=== PATIENT | male | born 1970 | race Caucasian/White ===

== ENCOUNTER 2020-08-10 13:21 | Outpatient (REF) | payer MEDICAID, SELFPAY ==
[2020-08-10 19:22] LABS: COMMENT (LAB VIEW ONLY) 55.63 mg/dL; Microalb ug/mg Crea 15.8 ug/mg Cr
[2020-08-10 19:30] LABS: AST 12 U/L (15-37); Albumin 4.2 g/dL (3.4-5.0); Anion Gap 14.8 mmol/L (3-11); BUN 21 mg/dL (7-18); CO2 21.2 mmol/L (21.0-32.0); CREATININE 0.94 mg/dL (0.70-1.30); Calcium 9.2 mg/dL (8.5-10.1); Chloride 97 mmol/L (98-107); Glucose 388 mg/dL (74-106); Potassium 4.6 mmol/L (3.5-5.1); Sodium 133 mmol/L (136-145)
[2020-08-10 19:45] LABS: ALT 32 U/L (16-63); Alkaline Phosphatase 151 U/L (46-116); Bilirubin, Total 0.7 mg/dL (0.2-1.0); Total Protein 7.7 g/dL (6.4-8.2)
[2020-08-10 20:00] LABS: Hemoglobin A1C 12.4 % (<5.7)
[2020-08-10 20:16] LABS: Cholesterol 300 mg/dL (<200); HDL Cholesterol 38 mg/dL (40-60); Triglyceride 826 mg/dL (<150)
[2020-08-10 20:30] LABS: LDL CHOLESTEROL 109 mg/dL (<100)
[2020-08-13 12:58] LABS: Hepatitis C Ab w Rflx HCV PCR Negative (Negative)
== END 2020-08-10 13:41 ==
LOC: NCHCN 13:21
PROVIDERS: Visit Provider Physician Assistant
DX: E11.9 Type 2 diabetes mellitus without complications (principal); E78.5 Hyperlipidemia, unspecified; Z11.59 Encounter for screening for other viral diseases
CPT/HCPCS: 80053; 80061; 83721; 86803; 82043; 82570; 83036

== ENCOUNTER 2020-09-07 10:45 | Outpatient (REF) | payer MEDICAID, SELFPAY ==
[2020-09-12 13:10] LABS: Testosterone, Free 9.38 ng/dL (4.26-16.4); Testosterone, Total 391 ng/dL (240-950)
== END 2020-09-07 11:05 ==
LOC: NCHCN 10:45
PROVIDERS: PCP Physician Assistant; Visit Provider Physician Assistant
DX: N52.9 Male erectile dysfunction, unspecified (principal)
CPT/HCPCS: 84402; 84403

== ENCOUNTER 2021-01-16 09:03 | Outpatient (REF) | payer MEDICAID, SELFPAY ==
[2021-01-16 16:09] LABS: ALT 39 U/L (16-63); AST 15 U/L (15-37); Albumin 3.9 g/dL (3.4-5.0); Alkaline Phosphatase 112 U/L (46-116); BUN 15 mg/dL (7-18); Bilirubin, Total 0.5 mg/dL (0.2-1.0); CREATININE 0.7 mg/dL (0.70-1.30); Calcium 8.9 mg/dL (8.5-10.1); Calculated LDL 89 mg/dL (<100); Chloride 106 mmol/L (98-107); Cholesterol 162 mg/dL (<200); Glucose 169 mg/dL (74-106); HDL Cholesterol 47 mg/dL (40-60); Potassium 4.2 mmol/L (3.5-5.1); Sodium 142 mmol/L (136-145); Total Protein 7.3 g/dL (6.4-8.2); Triglyceride 131 mg/dL (<150)
[2021-01-16 16:13] LABS: Hemoglobin A1C 9.2 % (<5.7)
== END 2021-01-16 09:04 | disposition home or self-care (01) ==
LOC: NCHCN 09:03
PROVIDERS: PCP Physician Assistant; Visit Provider Physician Assistant
DX: E11.9 Type 2 diabetes mellitus without complications (principal)
CPT/HCPCS: 80053; 80061; 83036

== ENCOUNTER 2021-03-25 22:26 | Emergency (ER) | payer MEDICAID, SELFPAY ==
[2021-03-25 22:27] VITALS: BP 127/82; PULSE 100; RESP 16; TEMP 36.7; O2SAT 99
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
== END 2021-03-26 | disposition home or self-care (01) ==
PROVIDERS: Emergency Provider Physician Assistant; PCP Physician Assistant
DX: S06.0X9A Concussion with loss of consciousness of unspecified duration, initial encounter (principal); Y04.2XXA Assault by strike against or bumped into by another person, initial encounter
CPT/HCPCS: 99284; 70450; 70486; 99283

== ENCOUNTER 2021-09-24 22:23 | Emergency (ER) | payer MEDICAID, SELFPAY ==
[2021-09-24] VITALS (16 sets, daily range): BP systolic 121–131; BP diastolic 75–80; PULSE 104–110; RESP 13–28; TEMP 36.8; O2SAT 94–96
--- NOTE | 2021-09-24 22:30 | RT.EKG_ITS ---
APPROVED REPORT Exam: Resting ECG Reason for Exam: short of breath Patient Location: E HR:108 bpm ECG Measurements Heart Rate 108 AXIS IN 160 P 46 QRSd 105 QRS -9 QT 330 T 42 QTc 443 Conclusion Sinus tachycardia...rate> 99 Physician: no stemi
--- NOTE | 2021-09-24 22:30 | DI.RAD_ITS ---
Exam(s) XR PORTABLE CHEST AP EXAM: XR PORTABLE CHEST AP CLINICAL HISTORY: suspect covid. TECHNIQUE: 2D digital imaging was performed. COMPARISON: No exams were available for comparison FINDINGS: Heart size is upper normal. The mediastinum is not widened. No confluent infiltrates nor pleural effusions. There is scarring or subsegmental platelike atelecta sis in the lateral left lung base. No pneumothorax. IMPRESSION: There is subsegmental platelike atelectasis or scarring in the lateral left lung base. No pleural ef fusions evident on this single portable view. DATA REPOSITORY: RADIATION DOSE DELIVERED: All CT scans at this facility use at least one of these dose optimization techniques: automated exposure control; mA and/or kV adjustment per patient size (includes targeted e xams where dose is matched to clinical indication); or iterative reconstruction.
[2021-09-24 22:54] LABS: BE (Venous) -4 mmol/L (-2-3); HCO3 (Venous) 20 mmol/L (23-28); O2 Sat (Venous) 85 %; TCO2 (Venous) 18 mmol/L (24-29); pCO2 (Venous) 32 mmHg (41-51); pH (Venous) 7.42 (7.31-7.41); pO2 (Venous) 46 mmHg
[2021-09-24 22:55] LABS: Abs Immature Grans 0.04 10^3/uL (0.0-0.06); Absolute Basophil Count 0.03 10^3/uL (0.0-0.2); Absolute Lymphocyte Count 1.48 10^3/uL (1.2-3.4); Absolute Monocyte Count 0.48 10^3/uL (0.1-0.8); Absolute Neutrophil Count 4.44 10^3/uL (1.2-6.7); Basophils % 0.5; HCT 45.7 % (40.0-50.0); HGB 15.6 g/dL (13.5-17.5); Immature Grans % 0.6; Lymphocytes % 22.9; MCH 30.2 pg (27.0-33.0); MCHC 34.1 % (32.0-36.0); MCV 88.4 fL (80-95); MPV 8.1 fL (8.0-11.0); Monocytes % 7.4; Neutrophils % 68.6; Nucleated RBC 0 %; Platelet Count 166 10^3/uL (130-400); RBC 5.17 10^6/uL (4.36-5.78); RDW 12.1 % (11.8-14.1); RDW-SD 39.8 fL; WBC 6.47 10^3/uL (4.4-10.8)
--- NOTE | 2021-09-24 22:55 | ED.GENADUL_ITS ---
Discharge Plan Disposition Patient Disposition: HOME Condition: Good Discharge Details Clinical Impression: Suspected 2019-nCoV infection, Dehydration Primary Care Provider: Omar Bloom ED Provider: Todd Golden Home Meds and New Rx's Prescriptions: Continued Jardiance 25 mg Tablet 25 mg PO DAILY RF: 0 glipizide 5 mg Tablet 5 mg PO BID RF: 0 Discharge Instructions Instructions: Dehydration (ED), COVID-19 (Coronavirus Disease 2019) (ED) Additional Instructions: At this time your COVID-19 infection is likely mild and you did not require hospitalization. You have received the monoclonal antibody therapy. Please continue to stay well-hydrated at home, rest, and monitor your symptoms closely. If you develop cough, shortness of breath, or difficulty breathing please return for reassessment. You have been given a pulse oximeter, monitor your oxygen levels closely. If your oxygen gets below 90% for an extended period of time please contact your medical provider or return for reassessment. If you notice any worsening of your symptoms, or any new symptoms such as vomiting, diarrhea, fever, chills, shortness of breath, chest pain, numbness, weakness, or fainting , please return immediately to the emergency department for reevaluation. Please follow up with your primary care provider as soon as possible for reassessment and reevaluation. As always, it was a pleasure participating in your medical care today. Referrals: Omar Bloom [Primary Care Provider] - Medical Decision Making 51-year-old male with past medical history of type 2 diabetes presents today for Covid-like symptoms. Patient states that 7 days ago he had onset of symptoms of diarrhea, fatigue, diminished appetite, chills, and weakness. He denies any chest pain, cough, or shortness of breath. He has loss of taste and smell. His is Covid positive. He has not received a Covid vaccine. He denies any syncope or cardiac problems. No other complaints at this time. No other modifying factors. Physical demonstrate a dehydrated appearing male, mildly tachycardic, clear lung sounds, oxygenation is good. No abdominal or calf tenderness. The patient's last of taste and smell, his Covid positive , and his symptoms of a viral illness his symptoms appear clinically consistent with COVID-19. The patient is currently at day 7/8 of symptoms. We are currently restricted from ordering rapid Covid test here in the ED secondary to her lack of supplies, and so we will perform a send out test. Regardless his symptoms are clinically consistent with COVID-19 and has been up to 48 to 72 hours until results return. This would put him out of the window for monoclonal antibody therapy at that time. Based on his clinical symptomatology, his high risk status based on his age, diabetes, and current clinical disposition I do feel that monoclonal antibody therapy is indicated. As the patient had not received his Covid vaccine, I did have a long discussion with the patient to see if you would be willing to receive the monoclonal antibody infusion. After discussion he made it unequivocally clear that he does want the infusion. This will be administered here. We will get a screening chest x-ray, rehydrate, monitor closely and reassess. Differential is highest for mild dehydration secondary to COVID-19. 1:02 AM Laboratory work-up has returned, no white count bandemia or left shift. No lymphopenia. VBG demonstrates mild alkalosis suggestive of the patient diarrhea, sodium slightly low at 126, he has been given 2 L of normal saline. Anion gap minimally high at 12.5. Troponin normal, EKG unremarkable. Patient does not have any bowel movements here. Symptoms consistent with COVID-19 clinically. Chest x-ray shows questionable subsegmental atelectasis versus very early atypical infection. Patient denies any cough, so clinically symptoms are more consistent with mild atelectasis. With no clinical evidence of significant pneumonia I see no indication for antibiotics at this time. Oxygenation is excellent. We will get pulse oximeter for home use. Patient tolerated the monoclonal antibody infusion well. Recommend continued hydration at home, rest, and close follow-up. Discussed red flags which to return. Discussed the case with the patient's as well. I have extensively reviewed the treatment plan and discharge instructions with the patient and their family. I have addressed all patient concerns at this time. The patient and family was made aware of what symptoms to monitor for that would warrant a return to the emergency department. Discussed the plan with the patient and family, they demonstrate verbal understanding and agreement with our assessment and plan at this time. The documentation in this chart was dictated using Node[employer] dictation software. Please excuse any dictation errors. FINDINGS: Lungs: Minor patchy interstitial and linear opacities are possible in the left lung base. Pleural spaces: No pleural effusion. No pneumothorax. Heart/Mediastinum: No cardiomegaly. Bones/joints: No acute fracture. IMPRESSION: Difficult to differentiate subsegmental atelectasis from a potential early atypical infection in the left lung base; follow-up is recommended. Thank you for allowing us to participate in the care of your patient. Dictated and Authenticated by: Adelita Crook MD 09/24/2021 11:27 PM Eastern Time ([place] & [place]) HPI General Date/Time Provider Initiated Documentation: 09/24/21 22:26 . HPI Narrative: 51-year-old male with past medical history of type 2 diabetes presents today for Covid-like symptoms. Patient states that 7 days ago he had onset of symptoms of diarrhea, fatigue, diminished appetite, chills, and weakness. He denies any chest pain, cough, or shortness of breath. He has loss of taste and smell. His is Covid positive. He has not received a Covid vaccine. He denies any syncope or cardiac problems. No other complaints at this time. No other modifying factors. Related Data Home Medications Medication Instructions Recorded Confirmed Jardiance 25 mg PO DAILY 03/25/21 09/24/21 glipizide 5 mg PO BID 03/25/21 09/24/21 Allergies Allergy/AdvReac Type Severity Reaction Status Date / Time No Known Allergies Allergy Unverified 03/25/21 22:39 General Stated Complaint: GenMedical DANNY: 3 Review of Systems All systems reviewed & are unremarkable except as noted in HPI and below [facility] Active Problem List Concussion (Acute) Social History Smoking/Tobacco Use Status: Never Smoking risk assessment performed?: Yes Alcohol Intake: current Alcohol Intake frequency: a few times a week Alcohol type: beer and hard liquor Drug use: Rarely Substance use type: marijuana Do you feel safe at home: Yes Exam Narrative Exam Narrative: 1.Const: Well-nourished, Well-developed, appearing stated age 2.Eyes: PERRL, no conjunctival injection, and symmetrical lids. 3.ENT: Atraumatic external nose and ears. Notably dry MM. Neck: Symmetric, trachea midline, No thyromegaly. 4.CVS: +S1/S2, No murmurs or gallops. Peripheral pulses 2+ and equal in all extremities. Brisk capillary refill in all extremities. 5.RESP: Unlabored respiratory effort. Clear to auscultation bilaterally. No wheezes rales or rhonchi 6.GI: Soft, Nontender/Nondistended, No hepatosplenomegaly. No guarding or rebound. 7.MSK: Normocephalic/Atraumatic, Extremities w/o deformity or ttp No cyanosis or clubbing, Normal movement of all extremities 8.Skin: Warm, Dry. No rashes or lesions. 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 Sensation grossly intact, no focal neurolo gic deficits. 10.Psych: (AAO) x3. Appropriate mood and affect Course Vital Signs Vital signs: Vital Signs Temperature 36.8 C 09/24/21 22:32 Pulse 110 H 09/24/21 22:32 Respiratory Rate 18 09/24/21 22:32 Blood Pressure 121/80 09/24/21 22:32 Pulse Oximetry 95 09/24/21 22:32 Temperature 36.8 C 09/24/21 22:32 Temperature Source Tympanic 09/24/21 22:32 Pulse 110 H 09/24/21 22:32 Respiratory Rate 18 09/24/21 22:32 Respiratory Effort 09/24/21 22:49 Respiratory Depth Normal 09/24/21 22:49 Respiratory Pattern Normal 09/24/21 22:49 Blood Pressure 121/80 09/24/21 22:32 Blood Pressure Position Supine 09/24/21 22:32 Pulse Oximetry 95 09/24/21 22:32 Oxygen Delivery Method Room Air 09/24/21 22:32 Oxygen Flow Rate 0 09/24/21 22:32 Pain Level 4 09/24/21 22:32
[2021-09-24] MEDS: Normal Saline 1,000 ML 1000 ML IV (23:06)
[2021-09-24 23:13] LABS: ALT 31 U/L (16-63); AST 26 U/L (15-37); Albumin 3.2 g/dL (3.4-5.0); Alkaline Phosphatase 70 U/L (46-116); Anion Gap 12.5 mmol/L (3-11); BUN 18 mg/dL (7-18); Bilirubin, Total 0.6 mg/dL (0.2-1.0); CO2 20.5 mmol/L (21.0-32.0); Calcium 8.1 mg/dL (8.5-10.1); Chloride 93 mmol/L (98-107); Glucose 172 mg/dL (74-106); Potassium 3.9 mmol/L (3.5-5.1); Sodium 126 mmol/L (136-145); Total Protein 7.2 g/dL (6.4-8.2)
[2021-09-24 23:14] LABS: Troponin I < 0.05 ng/mL (<0.06)
--- NOTE | 2021-09-24 23:27 | DI.VRAD_ITS ---
PROCEDURE INFORMATION: Exam: XR Chest Exam date and time: 09/24/2021 22:41 Age: 51 years old Clinical indication: Other: Suspect covid TECHNIQUE: Imaging protocol: XR of the chest. Views: 1 view. COMPARISON: No relevant prior studies available. FINDINGS: Lungs: Minor patchy interstitial and linear opacities are possible in the left lung base. Pleural spaces: No pleural effusion. No pneumothorax. Heart/Mediastinum: No cardiomegaly. Bones/joints: No acute fracture. IMPRESSION: Difficult to differentiate subsegmental atelectasis from a potential early atypical infection in the left lung base; follow-up is recommended. Dictated and Authenticated by: Adelita Crook MD. Ordering:TERRANCE Brooks MD
[2021-09-25] VITALS (7 sets, daily range): BP systolic 117–129; BP diastolic 71–75; PULSE 101–104; RESP 16–22; O2SAT 96–98
--- NOTE | 2021-09-25 00:08 | SUR.PHASEI ---
monoclonial antibody infusion completed without difficulty
[2021-09-25] MEDS: Normal Saline 1,000 ML 1000 ML IV (00:09)
[2021-09-26 16:25] LABS: COVID-19 RT-PCR UVMMC Result Positive (Negative)
--- NOTE | 2021-09-26 20:16 | W.ED.FU ---
Message left for patient with his as his listed number is not working. Patient returned the call to the ED and was informed of his positive COVID-19 test result. He states he is feeling better. Advised to follow-up with his PCP or the Department of Health for any further recommendations. Advised to return to the ED if his symptoms worsen.
== END 2021-09-25 02:04 | disposition home or self-care (01) ==
PROVIDERS: Emergency Provider Student in an Organized Health Care Education/Training Program; PCP Physician Assistant
DX: U07.1 COVID-19 (principal); E86.0 Dehydration; R19.7 Diarrhea, unspecified; R53.83 Other fatigue; R43.0 Anosmia; Z20.822 Contact with and (suspected) exposure to COVID-19
CPT/HCPCS: 36415; 80053; 82805; 93005; 96360; 96361; 96365; 99285; U0003; 71045; 84484; 85025; 93010

== ENCOUNTER 2021-10-03 12:17 | Inpatient (IN) | payer MEDICAID, SELFPAY ==
[2021-10-03] VITALS (30 sets, daily range): BP systolic 113–124; BP diastolic 74–85; PULSE 89–136; RESP 16–23; TEMP 36.1–36.6; O2SAT 94–98
--- OUTSIDE RECORDS SUMMARY | 2021-10-03 12:26 | XMS_ITS ---
:1970 Author Care Team Providers Name Role Phone JANNETH CORDERO Primary Care Provider [phone] Allergies Code Code System Name Reaction Severity Status Onset NKDA ? Medications Name Status Start Date Stop Date ? ? atorvastatin 10 mg tablet Active ? Not av ailable Take 1 tablet every day by oral route. Cialis 20 mg tablet Active ? Not availabl e Take 1 tablet every day by oral route. Jardiance 10 mg tablet Active ? Not avail able Take 1 tablet every day by oral route. Lantus Solostar U-100 Insulin Active ? No t available Levemir U-100 Insulin Active ? Not availa ble Lyrica 75 mg capsule Active ? Not availab le Take 1 capsule twice a day by oral route. NovoFine Plus 32 gauge x 1/6 needle Active ? Not available Novolog Flexpen U-100 Insulin aspart 100 unit/mL (3 mL) subcutan eous Active ? Not available Inject by subcutaneous route. Problems Name Status Onset Date Source ? Type 2 Diabetes Mellitus Active 09/12/2020 ? Dyslipidemia Active 09/12/2020 ? 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 Primary Erectile Dysfunction Active 09/12/2020 ? Hepatitis C Screening Active 09/12/2020 ? Restless Legs Active 09/13/2020 ? Obstructive Sleep Apnea Syndrome Active ? ? Procedures None recorded. Results Lab Results None recorded. 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 Social History Tobacco Smoking Status Never Smoker Vaccine List None recorded. Plan of Care Reminders Provider Appointments None ? ? recorded. Lab None ? ? recorded. Referral None ? ? recorded. Procedures None ? ? recorded. Surgeries None ? ? recorded. Imaging None ? ? recorded. Vitals Height Weight BMI Blood Pressure 170.18 cm 91.58 kg 31.6 kg/m2 110/80 mm[Hg]
--- NOTE | 2021-10-03 12:30 | RT.EKG_ITS ---
APPROVED REPORT Exam: Resting ECG Reason for Exam: covid+ Patient Location: E HR:112 bpm ECG Measurements Heart Rate 112 AXIS HI 163 P 41 QRSd 102 QRS 1 QT 340 T 45 QTc 464 Conclusion Sinus tachycardia...rate> 99
--- NOTE | 2021-10-03 12:30 | DI.CT_ITS ---
Exam(s) CT CHEST PE CTA EXAM: CT CHEST PE CTA CLINICAL HISTORY: tachycardia, calf pain, covid +. TECHNIQUE: Imaging Protocol: CT angiography of the chest was performed using pulmonary embolus eben col. Multi planar reconstructions were performed. CONTRAST MATERIAL: Intravenous: Omnipaque 350 Contrast volume: 100 cc COMPARISON: No exams were available for comparison FINDINGS: CHEST: PULMONARY ARTERIES: There are extensive bilateral intraluminal filling defect starting just beyond divina th main pulmonary arteries and the involving all lobes both lungs. LUNGS: There is patchy bilateral infiltrate more consistent with Covid-type pneumonia than obvious pu lmonary infarct.. There are no pleural effusions. MEDIASTINUM: There is some subcarinal adenopathy. Small hilar lymph nodes. No adenopathy in the ant erior mediastinal fat. No axillary adenopathy. No supraclavicular adenopathy visualized thyroid unr emarkable. CARDIAC: Heart size is upper normal. There is no pericardial effusion.Caliber of the thoracic aorta is within normal limits. No dissection. There is no significant shift of the interventricular septum . PARTIALLY VISUALIZED UPPERMOST ABDOMEN: No obvious findings OSSEOUS: No significant osseous lesions.. IMPRESSION: 1. Extensive bilateral pulmonary emboli.This patient has extensive clot load in the left lower extrem ity, as evident on ultrasound Doppler exam earlier today. 2. No evidence of pulmonary infarction but there are bilateral infiltrates consistent with Covid 19 p neumonia (known history). No pleural effusions. 3. No obvious prominent right heart strain findings. 4. Thoracic aorta intact. No significant dilatation and no evidence of dissection. Report called by myself to the ER provider. RADIATION DOSE DELIVERED: 457.02mGy.cm Total DLP DATA REPOSITORY: All CT scans at this facility are submitted to the National Radiology Data Registry (NRDR) Dose Index Registry (DIR) with the [employer] (ACR). RADIATION OPTIMIZATION: All CT scans at this facility use at least one of these dose optimization te chniques: automated exposure control; mA and/or kV adjustment per patient size (includes targeted exa ms where dose is matched to clinical indication); or iterative reconstruction.
--- NOTE | 2021-10-03 12:39 | DI.US_ITS ---
Exam(s) US LOWER EXTREMITY VENOUS LT EXAM: US LOWER EXTREMITY VENOUS LT CLINICAL HISTORY: recent covid, leg pain and swelling TECHNIQUE: Grayscale, color, and doppler imaging of the deep venous system of the lower extremity w as performed. COMPARISON: CT CT CHEST PE CTA from 10/03/[address] CHEST PE CTA from 10/03/2021 FINDINGS: This is a positive-abnormal study. There is extensive DVT in the left lower extremity starting just below the common femoral vein and ex tending down continuously through the popliteal vein into the calf veins. Also involving peroneal ve ins. There is also thrombosis of some of the superficial veins below the knee. The common femoral vein is patent as is the ipsilateral greater saphenous vein. Profundal femoral ve in is patent. IMPRESSION: 1. Extensive left lower extremity DVT, starting in the upper thigh-proximal femoral vein level and e xtending down to involve the calf veins. 2. Ipsilateral common femoral vein is patent. Also no thrombus in the ipsilateral greater saphenous vein nor within the profundal femoris vein DATA REPOSITORY:
[2021-10-03 13:11] LABS: Abs Immature Grans 0.48 10^3/uL (0.0-0.06); Absolute Basophil Count 0.11 10^3/uL (0.0-0.2); Absolute Eosinophil Count 0.36 10^3/uL (0.0-0.7); Absolute Lymphocyte Count 1.85 10^3/uL (1.2-3.4); Absolute Monocyte Count 0.99 10^3/uL (0.1-0.8); Absolute Neutrophil Count 6.55 10^3/uL (1.2-6.7); Basophils % 1.1; Eosinophils % 3.5; HCT 44.3 % (40.0-50.0); HGB 15.1 g/dL (13.5-17.5); Immature Grans % 4.6; Lymphocytes % 17.9; MCH 30.8 pg (27.0-33.0); MCHC 34.1 % (32.0-36.0); MCV 90.2 fL (80-95); MPV 7.9 fL (8.0-11.0); Monocytes % 9.6; Neutrophils % 63.3; Nucleated RBC 0 %; Platelet Count 297 10^3/uL (130-400); RBC 4.91 10^6/uL (4.36-5.78); RDW 12.7 % (11.8-14.1); RDW-SD 41.8 fL; WBC 10.34 10^3/uL (4.4-10.8)
[2021-10-03] MEDS: Omnipaque 350 MG/ML 100 ML BTL IJ (13:25)
[2021-10-03 13:28] LABS: ALT 25 U/L (16-63); AST 15 U/L (15-37); Albumin 3.4 g/dL (3.4-5.0); Alkaline Phosphatase 79 U/L (46-116); Anion Gap 12.8 mmol/L (3-11); BUN 15 mg/dL (7-18); Bilirubin, Total 0.6 mg/dL (0.2-1.0); CO2 23.2 mmol/L (21.0-32.0); CREATININE 0.6 mg/dL (0.70-1.30); Chloride 104 mmol/L (98-107); Glucose 223 mg/dL (74-106); Potassium 3.9 mmol/L (3.5-5.1); Sodium 140 mmol/L (136-145); Total Protein 7.7 g/dL (6.4-8.2)
[2021-10-03 13:30] LABS: Creatine Kinase 46 U/L (39-308)
[2021-10-03 13:32] LABS: Troponin I < 0.05 ng/mL (<0.06)
[2021-10-03 14:36] LABS: NT-proBNP 61 pg/mL (<300)
--- NOTE | 2021-10-03 14:45 | ED.GENADUL_ITS ---
Discharge Plan Disposition Patient Disposition: [facility] IN[facility] Condition: Serious Discharge Details Clinical Impression: Bilateral pulmonary embolism, Left leg DVT, Suspected 2019-nCoV infection Admit Date/Time: 10/03/21 14:45 Admit Provider: Lavonne Martines Attending Provider: Lavonne Martines Primary Care Provider: Omar Bloom ED Provider: Mary Fuentes Discharge Data Discharge Date/Time-TO BE ENTERED AT DEPARTURE: 10/03/21 15:58 Medical Decision Making Given patient's tachycardia and left lower extremity pain with recent Covid diagnosis, I did order CTA, EKG, troponin, and ultrasound of patient's left lower extremity Per radiology interpretation, patient extensive clot burden to his left lower extremity On his CTA he also has bilateral pulmonary emboli without evidence of heart strain significant clot burden Pt PESI score of 86, warranting admission to the hospital for observation and anticoagulation Dr. Martines has accepted this patient for admission Will be initiated on Lovenox, 1 mg/kg continuously initiated Mild hyperglycemia No evidence of diabetic ketoacidosis Patient is otherwise alert and oriented without any notable reason for withholding anticoagulation Care was discussed with Dr. Martines who has accepted patient for admission at this time No hypoxia, no hypotension, hemodynamically stable, tachycardia improved HPI General Mode of arrival: ambulatory . Date/Time Provider Initiated Documentation: 10/03/21 12:18 . Limitations to Documentation: no limitations . Information obtained by: patient . HPI Narrative: This 51-year-old gentleman with history of diabetes, hypertension, hyperlipidemia and recent diagnosis of COVID-19 on 24 September, symptomatic since 17 September presents with report of left lower extremity pain and swelling. He has persistent cough but is o therwise feeling better from a respiratory standpoint. He denies any chest pain or shortness of breath. He denies any fever or chills. He denies any skin discoloration or injury to the affected area. Related Data Home Medications Medication Instructions Recorded Confirmed Jardiance 25 mg PO DAILY 03/25/21 10/03/21 glipizide 5 mg PO BID 03/25/21 10/03/21 atorvastatin 10 mg PO DAILY 10/03/21 10/03/21 dulaglutide [Trulicity] 1.5 mg SUBCUT DIRECTED 10/03/21 10/03/21 lamotrigine 25 mg PO DAILY 10/03/21 10/03/21 apixaban [Eliquis] See Rx Instructions .ROUTE 10/04/21 .COMPLEX #74 tab Previous Rx's Medication Instructions Recorded apixaban [Eliquis] See Rx Instructions .ROUTE 10/04/21 .COMPLEX #74 tab Allergies Allergy/AdvReac Type Severity Reaction Status Date / Time No Known Allergies Allergy Unverified 10/03/21 12:24 General Stated Complaint: Vascular DANNY: 3 Review of Systems All systems reviewed & are unremarkable except as noted in HPI and below PFSH All Active Problems (Updated 10/04/21 @ 12:38 by FAUSTO Hagan) Discharge planning issues (Acute) Bilateral pulmonary embolism (Acute) Left leg DVT (Acute) Concussion (Acute) Suspected 2019-nCoV infection (Acute) Dehydration (Acute) Medical History (Updated 10/04/21 @ 12:38 by FUASTO Hagan) Bipolar disorder COVID-19 Non-insulin dependent diabetes mellitus Family History (Updated 10/03/21 @ 18:28 by Lavonne Martines MD) Mother Stroke Father Heart disease Diabetes Hypertension Social History Smoking/Tobacco Use Status: Never Smoking risk assessment performed?: Yes Alcohol Intake: current Alcohol Intake frequency: a few times a week Alcohol type: beer and hard liquor Drug use: Rarely Substance use type: marijuana Do you feel safe at home: Yes Exam Const General: cooperative, comfortable and no acute distress Eyes Sclera: sclerae normal Chest Chest: normal inspection of the chest Resp Effort & Inspection: normal respiratory effort Auscultation: clear to auscultation bilaterally Cardio Rate: tachycardic Rhythm: regular rhythm Heart Sounds: murmur GI Other: Nontender Skin General skin exam: no rashes or lesions noted Neuro General: patient alert and patient oriented x3 Cranial Nerves: CN's II-XI intact bilaterally Cognition: normal cognition Speech: speech normal Extrem Other: Left lower extremity with swelling and tenderness to calf Distal pulses intact No erythema or crepitus Course Vital Signs Vital signs: Vital Signs Temperature 36.5 C 10/03/21 12:21 Pulse 114 H 10/03/21 12:21 Respiratory Rate 18 10/03/21 12:21 Blood Pressure 124/84 10/03/21 12:21 Pulse Oximetry 98 10/03/21 12:21 Temperature 36.5 C 10/03/21 12:21 Temperature Source Temporal Artery Scan 10/03/21 12:21 Pulse 114 H 10/03/21 12:21 Respiratory Rate 16 10/03/21 13:52 Respiratory Effort 10/03/21 13:52 Respiratory Depth Normal 10/03/21 13:52 Respiratory Pattern Normal 10/03/21 13:52 Blood Pressure 124/84 10/03/21 12:21 Blood Pressure Position Sitting 10/03/21 12:21 Pulse Oximetry 98 10/03/21 12:21 Oxygen Delivery Method Room Air 10/03/21 12:21 Oxygen Flow Rate 0 10/03/21 12:21 Lab/Test Results Lab/Test Results: Laboratory Tests Range/Units 10/03/21 10/03/21 10/03/21 13:00 13:00 13:00 WBC (4.4-10.8) 10^3/uL 10.34 RBC (4.36-5.78) 10^6/uL 4.91 Hgb (13.5-17.5) g/dL 15.1 Hct (40.0-50.0) % 44.3 MCV (80-95) fL 90.2 MCH (27.0-33.0) pg 30.8 MCHC (32.0-36.0) % 34.1 RDW (11.8-14.1) % 12.7 Plt Count (130-400) 10^3/uL 297 D MPV (8.0-11.0) fL 7.9 L Immature Gran % 4.6 Neutrophils % 63.3 Lymphocytes % 17.9 Monocytes % 9.6 Eosinophils % 3.5 Basophils % 1.1 Nucleated RBC % % 0 Absolute Neutrophils (1.2-6.7) 10^3/uL 6.55 Absolute Lymphocytes (1.2-3.4) 10^3/uL 1.85 Absolute Monocytes (0.1-0.8) 10^3/uL 0.99 H Absolute Eosinophils (0.0-0.7) 10^3/uL 0.36 Absolute Basophils (0.0-0.2) 10^3/uL 0.11 Sodium (136-145) mmol/L 140 Potassium (3.5-5.1) mmol/L 3.9 Chloride (98-107) mmol/L 104 Carbon Dioxide (21.0-32.0) mmol/L 23.2 Anion Gap (3-11) mmol/L 12.8 H BUN (7-18) mg/dL 15 Creatinine (0.70-1.30) mg/dL 0.6 L Estimated GFR/1.73 m2 (mL/min/1.73m2) >= 60.00 Glucose (74-106) mg/dL 223 H Calcium (8.5-10.1) mg/dL 9.0 Total Bilirubin (0.2-1.0) mg/dL 0.6 AST (15-37) U/L 15 ALT (16-63) U/L 25 Alkaline Phosphatase (46-116) U/L 79 Creatine Kinase (39-308) U/L 46 Troponin I (<0.06) ng/mL < 0.05 NT-Pro-B Natriuret Pep (<300) pg/mL Total Protein (6.4-8.2) g/dL 7.7 Albumin (3.4-5.0) g/dL 3.4 Range/Units 10/03/21 13:00 WBC (4.4-10.8) 10^3/uL RBC (4.36-5.78) 10^6/uL Hgb (13.5-17.5) g/dL Hct (40.0-50.0) % MCV (80-95) fL MCH (27.0-33.0) pg MCHC (32.0-36.0) % RDW (11.8-14.1) % Plt Count (130-400) 10^3/uL MPV (8.0-11.0) fL Immature Gran % Neutrophils % Lymphocytes % Monocytes % Eosinophils % Basophils % Nucleated RBC % % Absolute Neutrophils (1.2-6.7) 10^3/uL Absolute Lymphocytes (1.2-3.4) 10^3/uL Absolute Monocytes (0.1-0.8) 10^3/uL Absolute Eosinophils (0.0-0.7) 10^3/uL Absolute Basophils (0.0-0.2) 10^3/uL Sodium (136-145) mmol/L Potassium (3.5-5.1) mmol/L Chloride (98-107) mmol/L Carbon Dioxide (21.0-32.0) mmol/L Anion Gap (3-11) mmol/L BUN (7-18) mg/dL Creatinine (0.70-1.30) mg/dL Estimated GFR/1.73 m2 (mL/min/1.73m2) Glucose (74-106) mg/dL Calcium (8.5-10.1) mg/dL Total Bilirubin (0.2-1.0) mg/dL AST (15-37) U/L ALT (16-63) U/L Alkaline Phosphatase (46-116) U/L Creatine Kinase (39-308) U/L Troponin I (<0.06) ng/mL NT-Pro-B Natriuret Pep (<300) pg/mL 61 Total Protein (6.4-8.2) g/dL Albumin (3.4-5.0) g/dL
--- NOTE | 2021-10-03 14:58 | HPE_ITS ---
Date of service: 10/03/21 Time of Service: 14:58 Assessment and Plan Assessment and plan (1) Bilateral pulmonary embolism: Status: Acute Assessment and plan: As a consequence of COVID-19. Due to significant clot burden, checking echo to ensure no right heart strain. Anticoagulate with lovenox. (2) Left leg DVT: Status: Acute Assessment and plan: As above (3) COVID-19: Assessment and plan: Tested negative for COVID-19 on this admission and clinically resolved. He is unvaccinated and we discussed how he needs to wait 3 weeks after recovery to get vaccinated, to which he is open. As above (4) Non-insulin dependent diabetes mellitus: Assessment and plan: Hold trulicity, glipizide, jardiance. Cover with SSI (5) Discharge planning issues: Status: Acute Assessment and plan: Full code Anticipate discharge home in 48 hrs History of Present Illness History of Present Illness Chief Complaint: leg swelling Narrative: Mr Mclean is a 51 year old male w/ PMHx of NIDDM2, hyperlipidemia, not vaccinated against COVID-19, who was diagnosed with COVID-19 on 09/24/21, though he had symptoms for many days before that, who presented to [facility] ED today w/ painful swelling of LLE x 2 days and was found to have an extensive LLE DVT (proximal femoral vein into calf veins) as well as B PEs. The patient denies chest pain, shortness of breath. He endorses having dizziness for 1 week. He has a cough productive of clear sputum. He actually tested negative for COVID-19 on this admission. He was initiated on therapeutic lovenox. Hospitalist admission was requested. Review of Systems All systems reviewed & are unremarkable except as noted in HPI and below PFSH All Active Problems (Updated 10/03/21 @ 18:28 by Lavonne Martines MD) Discharge planning issues (Acute) Bilateral pulmonary embolism (Acute) Left leg DVT (Acute) Concussion (Acute) Suspected 2019-nCoV infection (Acute) Dehydration (Acute) Medical History (Updated 10/03/21 @ 18:28 by Lavonne Martines MD) Bipolar disorder COVID-19 Non-insulin dependent diabetes mellitus Family History (Updated 10/03/21 @ 18:28 by Lavonne Martines MD) Mother Stroke Father Heart disease Diabetes Hypertension Social History Smoking/Tobacco Use Status: Never Smoking risk assessment performed?: Yes Alcohol Intake: current Alcohol Intake frequency: a few times a week Alcohol type: beer and hard liquor Drug use: Rarely Substance use type: marijuana Do you feel safe at home: Yes Meds Allergies and Home Medications Allergies Allergy/AdvReac Type Severity Reaction Status Date / Time No Known Allergies Allergy Unverified 10/03/21 12:24 Home Medications Medication Instructions Recorded Confirmed Type Jardiance 25 mg PO DAILY 03/25/21 10/03/21 History glipizide 5 mg PO BID 03/25/21 10/03/21 History atorvastatin 10 mg PO DAILY 10/03/21 10/03/21 History dulaglutide [Trulicity] 1.5 mg SUBCUT DIRECTED 10/03/21 10/03/21 History lamotrigine 25 mg PO DAILY 10/03/21 10/03/21 History Exam Narrative Exam Narrative: General: Pleasant obese male who is laying comf ortably flat in bed on RA, no dyspnea/tachypnea/cyanosis, A&Ox3 Neurological: A&ox3, no focal deficits Psychiatric: appropriate speech pattern or content Skin: Visible skin intact HEENT: Atraumatic, normocephalic, EOMI, dry MM, clear oropharynx, no submandibular or cervical lymphadenopathy, no goiter or JVD Cardiovascular: RRR, no m/r/g Lungs: CTAB Gastrointestinal: soft, nontender, nondistended Genitourinary: deferred Extremities: trace edema L foot, L calf tender, 1+ pedal pulses B Results Imaging Additional studies: CTA chest: 1. Extensive bilateral pulmonary emboli.This patient has extensive clot load in the left lower extremity, as evident on ultrasound Doppler exam earlier today. 2. No evidence of pulmonary infarction but there are bilateral infiltrates consistent with Covid 19 pneumonia (known history). No pleural effusions. 3. No obvious prominent right heart strain findings. 4. Thoracic aorta intact. No significant dilatation and no evidence of dissection. Venous doppler : 1. Extensive left lower extremity DVT, starting in the upper thigh-proximal femoral vein level and extending down to involve the calf veins. 2. Ipsilateral common femoral vein is patent. Also no thrombus in the ipsilateral greater saphenous vein nor within the profundal femoris vein. EKG: HR 112, ST, nonspecific ST-T changes, no acute ischemia Labs Result diagrams: 10/03/21 13:00 10/03/21 13:00 Labs: Laboratory Results - last 24 hr 10/03/21 10/03/21 10/03/21 13:00 13:00 13:00 WBC 10.34 RBC 4.91 Hgb 15.1 Hct 44.3 MCV 90.2 MCH 30.8 MCHC 34.1 RDW 12.7 Plt Count 297 D MPV 7.9 L Immature Gran % 4.6 Neutrophils % 63.3 Lymphocytes % 17.9 Monocytes % 9.6 Eosinophils % 3.5 Basophils % 1.1 Nucleated RBC % 0 Absolute Neutrophils 6.55 Absolute Lymphocytes 1.85 Absolute Monocytes 0.99 H Absolute Eosinophils 0.36 Absolute Basophils 0.11 Sodium 140 Potassium 3.9 Chloride 104 Carbon Dioxide 23.2 Anion Gap 12.8 H BUN 15 Creatinine 0.6 L Estimated GFR/1.73 m2 >= 60.00 Glucose 223 H Calcium 9.0 Total Bilirubin 0.6 AST 15 ALT 25 Alkaline Phosphatase 79 Creatine Kinase 46 Troponin I < 0.05 NT-Pro-B Natriuret Pep Total Protein 7.7 Albumin 3.4 10/03/21 13:00 WBC RBC Hgb Hct MCV MCH MCHC RDW Plt Count MPV Immature Gran % Neutrophils % Lymphocytes % Monocytes % Eosinophils % Basophils % Nucleated RBC % Absolute Neutrophils Absolute Lymphocytes Absolute Monocytes Absolute Eosinophils Absolute Basophils Sodium Potassium Chloride Carbon Dioxide Anion Gap BUN Creatinine Estimated GFR/1.73 m2 Glucose Calcium Total Bilirubin AST ALT Alkaline Phosphatase Creatine Kinase Troponin I NT-Pro-B Natriuret Pep 61 Total Protein Albumin Last Vital Signs Temp 36.5 C 10/03/21 12:21 Pulse 114 H 10/03/21 12:21 Resp 16 10/03/21 13:52 BP 124/84 10/03/21 12:21 Pulse Ox 98 10/03/21 12:21
[2021-10-03] MEDS: Enoxaparin 80 MG/0.8 ML SYR SC (15:01)
[2021-10-03 15:11] LABS: Source Nasal/Nares
[2021-10-03 16:01] LABS: COVID-19 PCR Negative (Negative)
--- NOTE | 2021-10-03 16:31 | DI.US_ITS ---
APPROVED REPORT EXAM: Comprehensive 2D, Doppler, and color-flow Echocardiogram Patient Location: In-Patient Room/Bed: [address] Front End Alignment Specialist: Zoey Mcelroy RDCS (AE) Indications: Acute PE, R/o right heart strain Other Information Study Quality: Adequate. Technically limited study due to inability to position patient exam done sup ine. Conclusion Normal left ventricular wall thickness and chamber size. Estimated ejection fraction is 55%. There are no segmental wall motion abnormalities Normal right ventricular size and systolic function Both atria are normal in size There are no structural or hemodynamically significant valvular abnormalities Estimated right ventricular systolic pressure is normal at 20 mmHg Wall motion Left Ventricle The left ventricle is normal size. The left ventricular systolic function is normal. The left ventric ular ejection fraction is within the normal range. There is normal left ventricular wall thickness. T here is normal LV segmental wall motion. There is no ventricular septal defect visualized. LVEF is 55 %. Right Ventricle Right ventricle is grossly normal in size. Right ventricular systolic function is grossly normal. The RVSP is 20.1 mmHg. Atria The left atrium size is normal. The right atrium size is normal. The interatrial septum is intact wit h no evidence for an atrial septal defect. Aortic Valve The aortic valve is normal in structure. Aortic valve is trileaflet. There is no aortic valvular sten osis. No aortic regurgitation is present. Mitral Valve The mitral valve is normal in structure. No evidence of mitral valve stenosis. Trace mitral regurgita tion. Tricuspid Valve The tricuspid valve is normal in structure. There is no tricuspid valve stenosis. Trace tricuspid reg urgitation. Pulmonic Valve The pulmonary valve is normal in structure. There is no pulmonic valvular stenosis. There is no pulmo mary valvular regurgitation. Great Vessels The aortic root is normal in size. The ascending aorta is normal in size. Aortic arch is normal in ca liber. The IVC collapses <50% with inspiration. Pericardium There is no pericardial effusion. 2D Dimensions IVSD d PLAX 0.94 cm M: 0.6-1.2 LV Vol A2C d MOD 97.6 mL LVPW d PLAX 0.93 cm M: 0.6 - 1.2 LV Vol A4C d MOD 105.0 mL LVID d PLAX 4.69 cm M: 4.2 - 5.8 LA vol/ BSA A2C s A-L 12.4 mL/m2 LVDs 3.45 cm M: 2.5 - 4.0 LA vol/ BSA A4C s A-L 22.9 mL/m2 Ao Root d 3.01 cm M: 3.1 - 3.7 LA Vol/ BSA Biplane s A-L 18.0 mL/m2 RA Area A4C 12.13 cm2 LA Area A4C s MOD 16.24 cm2 RA Vol/ BSA A4C s A-L 15.3 mL/m2 LA Area A2C s MOD 11.22 cm2 Ao Asc Diam d 3.22 cm M: 2.6 - 3.4 LV EF A4C MOD 50.6 % LV EF Teichholz 51.3 % LV EF A2C MOD 52.0 % LVEF (Contreras's) 50.87 % M: 52 - 72 LV EF Biplane MOD 50.9 % LV Volume 77.58 mL M: 62 - 150 SV 51.99 mL LV Volume Index 40.19 mL/m2 M: 34 - 74 SV Index 26.95 mL/m2 LV Vol Biplane MOD 102.2 mL FS 26.15 % M-Mode TAPSE 1.42 cm (M/F) >1.7 LV Diastology MV E' lateral 0.079 (>0.1 m/s) E/A Ratio 0.6 LV E/e LAT 5.15 (<14) MV E Vmax 0.41 (0.4-1.3 m/s) MV E/E' lateral 5.20 MV A Vmax 0.65 (0.4-1.3 m/s) MV E/A Ratio 0.63 Aortic Valve LVOT Area 3.34 cm2 AoV Area Vmax 2.71 cm2 LVOT Vmax 0.86 m/s AoV Area/ BSA (Vmax) 1.40 cm2/m2 LVOT Mean Alec. 0.58 m/s JOSE ALEJANDRO Mean Alec. 2.41 cm2 LVOT Peak Grad 3.0 mmHg JOSE ALEJANDRO Mean Alec. Index 1.25 cm2/m2 LVOT Mean Grad 1.5 mmHg LVOT VTI 0.154 m LVOT Diam s 2.05 cm AoV Vmax 1.06 m/s Velocity Ratio 0.81 AoV Mean Alec. 0.80 m/s AoV Peak Grad 4.5 mmHg LVOT SV 51.43 mL AoV Mean Grad 2.8 mmHg AoV VTI 0.160 m AoV Area VTI 3.22 cm2 AoV Area/ BSA (VTI) 1.67 cm/m2 Mitral Valve MV DT 255 (160-240 msec) MV PHT 74 msec MV Area PHT 2.97 cm2 MV VTI 0.137 m MV Area VTI 3.77 (4.0-6.0 cm2) Pulmonary Valve PV Vmax 0.86 (0.5-1.5 m/s) RVOT Peak Gr. 1.45 mmHg PV Peak Grad 2.9 mmHg RVOT Mean Gr. 0.65 mmHg PV Mean Grad 1.5 mmHg RVOT VTI 0.092 m PV VTI 0.130 m RVOT Vmax 0.60 m/s Tricuspid Valve TR Peak Grad 12.1 mmHg TR Vmax 1.74 m/s RA Pressure 8.00 mmHg RVSP (TR) 20.1 mmHg
[2021-10-03] MEDS: Normal Saline 500 ML 30 ML IV (16:48)
[2021-10-03] MEDS: Normal Saline Flush 10 ML SYR IVP ×2 (16:48→19:19)
[2021-10-03] MEDS: REMDESIVIR 200 MG in Normal Saline 250 ML 250 MG IVPB (16:49)
[2021-10-03] MEDS: Lactated Ringers 1,000 ML 125 ML IV (19:19)
[2021-10-03] MEDS: Acetaminophen 325 MG TAB PO (20:19)
[2021-10-03] MEDS: Insulin Aspart 300 UNITS/3 ML PEN SC (22:03)
[2021-10-04] VITALS (7 sets, daily range): BP systolic 119–148; BP diastolic 76–94; PULSE 85–117; RESP 17–20; TEMP 36.5–36.8; O2SAT 93–100
[2021-10-04] MEDS: Lactated Ringers 1,000 ML 125 ML IV ×3 (02:56→19:25)
[2021-10-04] MEDS: Enoxaparin 80 MG/0.8 ML SYR SC ×2 (02:56→13:41)
[2021-10-04 07:04] LABS: HCT 42.2 % (40.0-50.0); MCH 30.3 pg (27.0-33.0); MCHC 33.2 % (32.0-36.0); MCV 91.3 fL (80-95); MPV 7.9 fL (8.0-11.0); Nucleated RBC 0 %; Platelet Count 293 10^3/uL (130-400); RBC 4.62 10^6/uL (4.36-5.78); RDW 12.8 % (11.8-14.1); RDW-SD 43.2 fL; WBC 8.85 10^3/uL (4.4-10.8)
[2021-10-04 07:32] LABS: ALT 23 U/L (16-63); AST 11 U/L (15-37); Albumin 2.9 g/dL (3.4-5.0); Alkaline Phosphatase 71 U/L (46-116); Anion Gap 10.2 mmol/L (3-11); BUN 13 mg/dL (7-18); Bilirubin, Direct 0.1 mg/dL (0.0-0.2); Bilirubin, Total 0.5 mg/dL (0.2-1.0); C-Reactive Protein 0.79 mg/dL (0.0-0.3); CO2 23.8 mmol/L (21.0-32.0); CREATININE 0.6 mg/dL (0.70-1.30); Calcium 8.4 mg/dL (8.5-10.1); Chloride 105 mmol/L (98-107); Ferritin 708 ng/mL (26-388); Glucose 143 mg/dL (74-106); Magnesium 1.9 mg/dL (1.8-2.4); Sodium 139 mmol/L (136-145); Total Protein 6.6 g/dL (6.4-8.2)
[2021-10-04 07:33] LABS: Absolute Eosinophil Count 0.27 10^3/uL (0.0-0.7); Absolute Lymphocyte Count 1.59 10^3/uL (1.2-3.4); Absolute Monocyte Count 0.97 10^3/uL (0.1-0.8); Absolute Neutrophil Count 6.02 10^3/uL (1.2-6.7); Bands % 1
[2021-10-04 07:34] LABS: Diff Comment Manual Differential; RBC Morphology Normal
[2021-10-04 07:52] LABS: D-Dimer 7147 ng/mlFEU (<500)
[2021-10-04 07:55] LABS: Procalcitonin < 0.1 ng/mL
[2021-10-04 07:58] LABS: INR 1.1 (0.9-1.1); Prothrombin Time 10.6 sec (9.3-11.0)
[2021-10-04] MEDS: Insulin Aspart 300 UNITS/3 ML PEN SC ×3 (08:47→22:09)
[2021-10-04] MEDS: Normal Saline Flush 10 ML SYR IVP (08:47)
--- NOTE | 2021-10-04 10:29 | INITIAL_ITS ---
- If Service Date Differs Date of service: 10/04/21 Time of Service: 10:29 Care Management Initial Assess REASON FOR HOSPITALIZATION:: Bilateral PEs and DVT PAST MEDICAL HISTORY/PAST SURGICAL HISTORY:: All Active Problems (Updated 10/03/21 @ 18:28 by Lavonne Martines MD). Discharge planning issues (Acute). Bilateral pulmonary embolism (Acute). Left leg DVT (Acute). Concussion (Acute). Suspected 2019-nCoV infection (Acute). Dehydration (Acute). Medical History (Updated 10/03/21 @ 18:28 by Lavonne Martines MD). Bipolar disorder. COVID-19. Non-insulin dependent diabetes mellitus PREVIOUS FUNCTIONAL STATUS/SOCIAL/FAMILY SUPPORTS:: Jose E lives in an apartment in [place] [facility] with his Tiana and 5 of their 10 children. The other 5 children are adults living in the community. 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 he is independent at baseline. CURRENT FUNCTIONAL STATUS:: Cong was sitting up in bed when CM met with him. He was polite but not very talkative. Cong shared that he is still having a lot of pain in his leg from the DVT. The provider has ordered Eliquis to be taken at home and CM confirmed that his insurance (Medicaid) will cover the cost with no co-pay. ADVANCE DIRECTIVES:: none on file Has patient been provided with info about the portal/API?: Yes Did the patient sign up for the portal?: No CODE STATUS:: Full Code INSURANCE COVERAGE / FINANCIAL ISSUES:: Medicaid CURRENT HOME/COMMUNITY SERVICES/EQUIPMENT:: none PRIMARY CARE PHYSICIAN:: Omar Bloom POTENTIAL DISCHARGE NEEDS:: follow up with PCP and plan of care PATIENT/FAMILY EDUCATION NEEDS:: Review discharge instructions, medications, activity, limitations, follow up plan and discuss, Ask Me Three. TRANSPORTATION:: via private vehicle with family PLAN:: Cong will likely be discharged home with no new services. He will follow up with his PCP and plan of care and transport with family.
--- NOTE | 2021-10-04 15:33 | W.PM.PROGNOT ---
Date of Service Date of service: 10/04/21 Time of Service: 15:33 Assessment and Plan Assessment and plan (1) Bilateral pulmonary embolism: Status: Acute Assessment and plan: On lovenox. B PE/DVT As a consequence of COVID-19. No evidence of R heart strain. Continue lovenox in house. IS. Checking coverage for eliquis on discharge (2) Left leg DVT: Status: Acute Assessment and plan: As above (3) COVID-19: Assessment and plan: Tested negative for COVID-19 on this admission and clinically resolved. He is unvaccinated and we discussed how he needs to wait 3 weeks after recovery to get vaccinated, to which he is open. As above (4) Non-insulin dependent diabetes mellitus: Assessment and plan: Hold trulicity, glipizide, jardiance. Cover with SSI (5) Discharge planning issues: Status: Acute Assessment and plan: Full code Anticipate discharge home tomorrow. Not requiring O2 by ambulatory pulse ox testing Subjective Subjective Interval history since last seen: Mr Mclean states that he had a small episode of chest pain accompanied by dizziness. His left leg hurts, 6/10, at rest and with activity. We discussed how he should not use NSAIDs for his pain. Denies shortness of breath and nausea. He would like to stay in the hospital one more day. On tele, had a short episode of HR 130-150, probably during activity, but otherwise has remained in NSR. Exam Narrative Exam Narrative: General: Pleasant obese male who is laying comfortably flat in bed on RA, no dyspnea/tachypnea/cyanosis, A&Ox3 HEENT: EOMI, MMM Cardiovascular: RRR, no m/r/g Lungs: CTAB Gastrointestinal: soft, nontender, nondistended Extremities: trace edema L foot, L calf tender, 1+ pedal pulses B Objective Last Vital Signs Temp 36.6 C 10/04/21 09:39 Pulse 94 H 10/04/21 09:39 Resp 18 10/04/21 09:39 BP 129/86 10/04/21 09:39 Pulse Ox 98 10/04/21 09:39 Laboratory Results - last 24 hr 10/03/21 10/04/21 10/04/21 15:00 06:45 06:45 WBC RBC Hgb Hct MCV MCH MCHC RDW Plt Count MPV Immature Gran % Neutrophils % Band Neutrophils % Lymphocytes % Monocytes % Eosinophils % Basophils % Nucleated RBC % Absolute Neutrophils Absolute Lymphocytes Absolute Monocytes Absolute Eosinophils Absolute Basophils RBC Morphology PT INR D-Dimer Sodium 139 Potassium 4.0 Chloride 105 Carbon Dioxide 23.8 Anion Gap 10.2 BUN 13 Creatinine 0.6 L Estimated GFR/1.73 m2 >= 60.00 Glucose 143 H D Calcium 8.4 L Magnesium 1.9 Ferritin 708 H Total Bilirubin 0.5 Conjugated Bilirubin 0.1 AST 11 L ALT 23 Alkaline Phosphatase 71 C-Reactive Protein 0.79 H Total Protein 6.6 Albumin 2.9 L Procalcitonin < 0.1 SARS-CoV-2 (PCR) Negative 10/04/21 10/04/21 06:45 06:45 WBC 8.85 RBC 4.62 Hgb 14.0 Hct 42.2 MCV 91.3 MCH 30.3 MCHC 33.2 RDW 12.8 Plt Count 293 MPV 7.9 L Immature Gran % 0.0 Neutrophils % 67.0 Band Neutrophils % 1 Lymphocytes % 18.0 Monocytes % 11.0 Eosinophils % 3.0 Basophils % 0.0 Nucleated RBC % 0 Absolute Neutrophils 6.02 Absolute Lymphocytes 1.59 Absolute Monocytes 0.97 H Absolute Eosinophils 0.27 Absolute Basophils 0.00 RBC Morphology Normal PT 10.6 INR 1.1 D-Dimer 7147 H Sodium Potassium Chloride Carbon Dioxide Anion Gap BUN Creatinine Estimated GFR/1.73 m2 Glucose Calcium Magnesium Ferritin Total Bilirubin Conjugated Bilirubin AST ALT Alkaline Phosphatase C-Reactive Protein Total Protein Albumin Procalcitonin SARS-CoV-2 (PCR) Objective Narrative Objective Narrative: Echo; Normal left ventricular wall thickness and chamber size. Estimated ejection fraction is 55%. There are no segmental wall motion abnormalities Normal right ventricular size and systolic function Both atria are normal in size There are no structural or hemodynamically significant valvular abnormalities Estimated right ventricular systolic pressure is normal at 20 mmHg
[2021-10-04] MEDS: traMADol 50 MG TAB 100 MG PO (16:06)
--- NOTE | 2021-10-04 17:18 | CHAPLAIN ---
Jose E was resting in bed when I visited. He did not seem interested in a longer conversation. I explained my role and offered support.
[2021-10-05] VITALS: PULSE 93
[2021-10-05] MEDS: Lactated Ringers 1,000 ML 125 ML IV (03:03)
[2021-10-05] MEDS: Enoxaparin 80 MG/0.8 ML SYR SC (03:03)
[2021-10-05 03:09] VITALS: BP 141/91; PULSE 79; RESP 16; TEMP 35.7; O2SAT 98
[2021-10-05] MEDS: Acetaminophen 325 MG TAB PO (03:13)
[2021-10-05 06:59] LABS: Abs Immature Grans 0.36 10^3/uL (0.0-0.06); Absolute Basophil Count 0.08 10^3/uL (0.0-0.2); Absolute Eosinophil Count 0.32 10^3/uL (0.0-0.7); Absolute Lymphocyte Count 2.32 10^3/uL (1.2-3.4); Absolute Monocyte Count 0.74 10^3/uL (0.1-0.8); Absolute Neutrophil Count 5.44 10^3/uL (1.2-6.7); Basophils % 0.9; Eosinophils % 3.5; HCT 40.6 % (40.0-50.0); HGB 13.6 g/dL (13.5-17.5); Immature Grans % 3.9; Lymphocytes % 25.1; MCH 30.4 pg (27.0-33.0); MCHC 33.5 % (32.0-36.0); MCV 90.8 fL (80-95); MPV 7.7 fL (8.0-11.0); Neutrophils % 58.6; Nucleated RBC 0 %; Platelet Count 276 10^3/uL (130-400); RBC 4.47 10^6/uL (4.36-5.78); RDW 12.7 % (11.8-14.1); RDW-SD 41.5 fL; WBC 9.26 10^3/uL (4.4-10.8)
[2021-10-05 07:00] VITALS: PULSE 81
[2021-10-05 07:12] LABS: Anion Gap 7.4 mmol/L (3-11); BUN 12 mg/dL (7-18); CO2 27.6 mmol/L (21.0-32.0); CREATININE 0.5 mg/dL (0.70-1.30); Calcium 8.3 mg/dL (8.5-10.1); Chloride 104 mmol/L (98-107); Glucose 147 mg/dL (74-106); Potassium 3.9 mmol/L (3.5-5.1); Sodium 139 mmol/L (136-145)
[2021-10-05 07:20] VITALS: BP 136/87; PULSE 87; RESP 16; TEMP 36.4; O2SAT 96
--- NOTE | 2021-10-05 09:31 | PDOC.CMDIS ---
- If Service Date Differs Date of service: 10/05/21 Time of Service: 09:31 LACE Index Scoring Tool - Questions: Length of Stay (in days): 2 Acuity (Admit via E.D.?): Yes Comorbidities: Diabetes w/o Complication E.D. Visits: 3 - Answers: Total Score: 9 Risk of Readmission: Low Risk Care Management Discharge Reason for Hospitalization: Bilateral PEs and DVT Discharge Plan: Cong will be discharged home with no new services. New Eliquis prescription coordinated through [facility] with no co-pay reported. Jose E will follow up with his PCP and plan of care and transport with family. Patient/Family Education Needs: Review discharge instructions, discuss Ask Me Three.
[2021-10-05 10:02] VITALS: PULSE 82
--- NOTE | 2021-10-05 10:17 | DSE_ITS ---
Date of service: 10/05/21 Time of Service: 10:17 DS: Diagnosis Discharge Diagnosis (1) Bilateral pulmonary embolism: Status: Acute (2) Left leg DVT: Status: Acute (3) COVID-19: (4) Non-insulin dependent diabetes mellitus: (5) Discharge planning issues: Status: Acute Discharge Plan Disposition Patient Disposition: HOME Condition: Good Discharge Details Reason For Visit: DVT/Acute B PE's, Covid 19 Admit Date/Time: 10/03/21 14:45 Admit Provider: Lavonne Martines Attending Provider: Lavonne Martines Primary Care Provider: Omar Bloom Hospital Course Hospital Course: Mr Mclean is a 51 year old male w/ PMHx of NIDDM2, hyperlipidemia, not vac cinated against COVID-19, who was diagnosed with COVID-19 on 09/24/21, though he had symptoms for many days before that, who presented to [facility] ED on10/03/21 w/ painful swelling of the left lower extremity x 2 days and was found to have an extensive LLE DVT (proximal femoral vein into calf veins) as well as bilateral pulmonary emboli. The patient denied chest pain, shortness of breath. He endorsed having dizziness for 1 week. He has had a cough productive of clear sputum. He actually tested negative for COVID-19 on this admission. He was initiated on therapeutic lovenox. Hospitalist admission was requested. Echocardiogram showed no evidence of right heart strain. He continued to have discomfort in the left lower extremity but improving. His diabetic medications were held and his blood glucose monitoring showed adequate control. He will resume his usual diabetic meds upon discharge. Eliquis was approved w/o a co-pay through his insurer. Eliquis 10mg BID for 7 days, then 5mg BID for 6 months. PCP follow up in 1-2 weeks. Home Meds and New Rx's Prescriptions: New Eliquis 5 mg tablet See Rx Instructions .ROUTE .COMPLEX Qty: 74 RF: 0 Continued Jardiance 25 mg Tablet 25 mg PO DAILY RF: 0 glipizide 5 mg Tablet 5 mg PO BID RF: 0 atorvastatin 10 mg tablet 10 mg PO DAILY RF: 0 lamotrigine 25 mg tablet 25 mg PO DAILY RF: 0 Trulicity 1.5 mg/0.5 mL pen injector 1.5 mg SUBCUT DIRECTED RF: 0 Discharge Instructions Activity:: Activity as Tolerated Equipment/Supplies:: No Equipment Needed Diet:: resume his usual diet DS: Summary Time Spent with Patient providing and/or coordinating discharge services: Greater than 30 minutes Status at Discharge Functional status at discharge: independent ambulation Overall status at discharge: patient is progressing back to baseline Mental Status: mental status grossly normal Speech and Movement: speech and movement normal Mood: congruent mood Affect: normal affect Exam Narrative Exam Narrative: General: Pleasant obese male who is laying comfortably flat in bed on RA, no dyspnea/tachypnea/cyanosis, A&Ox3 HEENT: EOMI, MMM Cardiovascular: RRR, no m/r/g Lungs: CTAB Gastrointestinal: soft, nontender, nondistended Extremities: trace edema L foot, L calf tender, 1+ pedal pulses B Psych Mental Status: mental status grossly normal Speech and Movement: speech and movement normal Mood: congruent mood Affect: normal affect DS: Data Vitals/I&O Vitals and I&O: Vital Signs Temperature 36.4 C L 10/05/21 07:20 Temperature Source Tympanic 10/05/21 07:20 Pulse 82 10/05/21 10:02 Pulse Rhythm Regular 10/05/21 03:10 Pulse 96 H 10/03/21 16:10 Respiratory Rate 16 10/05/21 07:20 Respiratory Effort Non-Labored 10/05/21 03:10 Respiratory Depth Normal 10/05/21 03:10 Respiratory Pattern Normal 10/05/21 03:10 Blood Pressure 136/87 10/05/21 07:20 Blood Pressure Mean 90 10/03/21 15:45 Blood Pressure Position Sitting 10/03/21 12:21 Pulse Oximetry 96 10/05/21 07:20 Oxygen Delivery Method Room Air 10/05/21 07:20 Oxygen Flow Rate 0 10/05/21 07:20 Pain Level 5 10/05/21 07:20 Intake & Output 10/04/21 10/04/21 10/05/21 11:59 23:59 11:59 Intake Total 3167.081214 3167.083 954.167 / 954.167 Balance 3167.083 1214 3167.083 954.167 / 954.167 Weight 77.5 kg Intake: IV 1952.083 / 2927.083 975 / 2927.083 954.167 / 954.167 Oral 240 / 240 Other: Urine Appearance Clear Clear Comment Patient up independent to the bathroom around this time. Voiding Methods Toilet Data Completed and Pending Labs on day of discharge: Labs from last 24 hours 10/05/21 10/05/21 06:45 06:45 WBC 9.26 RBC 4.47 Hgb 13.6 Hct 40.6 MCV 90.8 MCH 30.4 MCHC 33.5 RDW 12.7 Plt Count 276 MPV 7.7 L Immature Gran % 3.9 Neutrophils % 58.6 Lymphocytes % 25.1 Monocytes % 8.0 Eosinophils % 3.5 Basophils % 0.9 Nucleated RBC % 0 Absolute Neutrophils 5.44 Absolute Lymphocytes 2.32 Absolute Monocytes 0.74 Absolute Eosinophils 0.32 Absolute Basophils 0.08 Sodium 139 Potassium 3.9 Chloride 104 Carbon Dioxide 27.6 Anion Gap 7.4 BUN 12 Creatinine 0.5 L Estimated GFR/1.73 m2 >= 60.00 Glucose 147 H Calcium 8.3 L Magnesium 2.0 PFSH All Active Problems Discharge planning issues (Acute) Bilateral pulmonary embolism (Acute) Left leg DVT (Acute) Concussion (Acute) Suspected 2019-nCoV infection (Acute) Dehydration (Acute) Medical History Bipolar disorder COVID-19 Non-insulin dependent diabetes mellitus Family History Mother Stroke Father Heart disease Diabetes Hypertension Social History Smoking/Tobacco Use Status: Never Smoking risk assessment performed?: Yes Alcohol Intake: current Alcohol Intake frequency: a few times a week Alcohol type: beer and hard liquor Drug use: Rarely Substance use type: marijuana Do you feel safe at home: Yes
[2021-10-05 11:46] VITALS: BP 141/91; PULSE 70; RESP 18; TEMP 36.7; O2SAT 97
[2021-10-05] MEDS: Insulin Aspart 300 UNITS/3 ML PEN SC (12:01)
[2021-10-07 05:46] LABS: Vitamin D 25 Total 23.7 ng/mL (30-100)
== END 2021-10-05 13:08 | disposition home or self-care (01) | DRG 176 ==
LOC: ER 12:24 → MS 16:00
PROVIDERS: Admitting Provider Internal Medicine; Emergency Provider Physician Assistant; PCP Physician Assistant; Visit Provider Internal Medicine
DX: I26.99 Other pulmonary embolism without acute cor pulmonale (principal); I82.412 Acute embolism and thrombosis of left femoral vein; I82.4Z2 Acute embolism and thrombosis of unspecified deep veins of left distal lower extremity; E11.9 Type 2 diabetes mellitus without complications; Z79.84 Long term (current) use of oral hypoglycemic drugs; E78.5 Hyperlipidemia, unspecified; Z86.16 Personal history of COVID-19; Z20.822 Contact with and (suspected) exposure to COVID-19
CPT/HCPCS: 36415; 71275; 80048; 80053; 80076; 82306; 82550; 84145; 87635; 93005; 94618; 96372; 99285; 82728; 83735; 83880; 84484; 85025; 85379; 85610; 86140; 93010; 93306; 93971; 99223; 99232; 99239; J1650; J3490

== ENCOUNTER 2022-01-07 16:42 | Outpatient (REF) | payer MEDICAID, SELFPAY ==
[2022-01-07 19:42] LABS: HCT 46.7 % (40.0-50.0); MCH 31.3 pg (27.0-33.0); MCHC 34.3 % (32.0-36.0); MCV 91.2 fL (80-95); MPV 8.8 fL (8.0-11.0); Platelet Count 303 10^3/uL (130-400); RBC 5.12 10^6/uL (4.36-5.78); RDW 12.5 % (11.8-14.1); RDW-SD 41.6 fL; WBC 9.24 10^3/uL (4.4-10.8)
[2022-01-07 20:06] LABS: ALT 27 U/L (16-63); AST 12 U/L (15-37); Albumin 4.2 g/dL (3.4-5.0); Alkaline Phosphatase 121 U/L (46-116); Anion Gap 11.6 mmol/L (3-11); BUN 20 mg/dL (7-18); Bilirubin, Total 0.4 mg/dL (0.2-1.0); CO2 22.4 mmol/L (21.0-32.0); CREATININE 0.9 mg/dL (0.70-1.30); Calcium 9.6 mg/dL (8.5-10.1); Calculated LDL 107 mg/dL (<100); Chloride 105 mmol/L (98-107); Cholesterol 189 mg/dL (<200); Glucose 250 mg/dL (74-106); HDL Cholesterol 51 mg/dL (40-60); Hemoglobin A1C 8.5 % (<5.7); Potassium 4.2 mmol/L (3.5-5.1); Sodium 139 mmol/L (136-145); Total Protein 7.6 g/dL (6.4-8.2); Triglyceride 156 mg/dL (<150)
== END 2022-01-07 16:43 | disposition home or self-care (01) ==
LOC: NCHCN 16:42
PROVIDERS: PCP Physician Assistant; Visit Provider Physician Assistant
DX: E11.9 Type 2 diabetes mellitus without complications (principal); E78.5 Hyperlipidemia, unspecified
CPT/HCPCS: 80053; 80061; 85027; 83036

== ENCOUNTER 2022-03-30 05:21 | Emergency (ER) | payer MEDICAID, SELFPAY ==
[2022-03-30 05:24] VITALS: BP 144/94; PULSE 78; RESP 18; TEMP 36.2; O2SAT 100
--- NOTE | 2022-03-30 05:35 | W.ED.GENAD ---
Discharge Plan Disposition Patient Disposition: HOME Condition: Good Discharge Details Clinical Impression: Chronic left SI joint pain, Nerve pain Primary Care Provider: Omar Bloom ED Provider: Todd Golden Home Meds and New Rx's Prescriptions: New prednisone 50 mg tablet 50 mg PO DAILY Qty: 5 0RF No Action Jardiance 25 mg Tablet 25 mg PO DAILY glipizide 5 mg Tablet 5 mg PO BID atorvastatin 10 mg tablet 10 mg PO DAILY Label Comments: TAKE ONE TABLET BY MOUTH EVERY DAY lamotrigine 25 mg tablet 25 mg PO DAILY Label Comments: TAKE ONE TABLET BY MOUTH EVERY DAY FOR 14 DAYS; THEN TAKE TWO TABLETS DAILY Trulicity 1.5 mg/0.5 mL pen injector 1.5 mg SUBCUT DIRECTED Label Comments: INJECT 1.5MG UNDER THE SKIN ONCE WEEKLY Rx Instructions: weekly Eliquis 5 mg tablet See Rx Instructions .ROUTE .COMPLEX Qty: 74 0RF Rx Instructions: 10 mg PO BID x 7 days, then 5 mg PO BID Discharge Instructions Instructions: Lumbar Radiculopathy (ED) Additional Instructions: At this time your symptoms appear to be consistent with a peripheral nerve irritation likely stemming from irritation at your SI joint. Please continue to perform stretches daily that I showed you. Please take the prednisone as directed. Please also take the Tylenol or Motrin as well. Please be mindful that this can cause irritation to the stomach, so please take Pepto-Bismol or Maalox if necessary with these medications, and make sure you are taking these medications with food to prevent any stomach irritation. If you notice any worsening of your symptoms, or any new symptoms such as vomiting, diarrhea, fever, chills, shortness of breath, chest pain, numbness, weakness, or fainting , please return immediately to the emergency department for reevaluation. Please follow up with your primary care provider as soon as possible for reassessment and reevaluation. As always, it was a pleasure participating in your medical care today. For physical therapist, I would recommend Jeff Purcell. His office is located at [address] [place] [address]. His phone number is [phone]. Referrals: Omra Bloom [Primary Care Provider] - Medical Decision Making 52-year-old male with a past medical history of diabetes mellitus and high cholesterol, presents today for evaluation of left groin pain. Patient states that for the last 1 to 2 weeks he has had mild pain that goes from his left SI joint all the way towards his left groin. It does not go into the penis. It is made worse with bending forward. It is improved with stretching. It is improved with Motrin but not Tylenol. It is improved with taking a hot shower and then a cold bath. He denies any dysuria, hematuria, history of kidney stones, penile discharge. He denies any numbness tingling or weakness. He denies any falls. He denies any bowel or bladder incontinence. He denies any trauma. He states that he has had pain like this in the past, however past episodes were much more worse. It was resolved at that time with a chiropractor. Of note he is not on Eliquis anymore. No other complaints at this time. No other modifying factors. Physical exam demonstrates a very reassuring genital exam no evidence of shingles, hernia, femoral pulse abnormality, aneurysm, testicular tenderness, testicular abnormality or other complaint. No signs of cauda equina syndrome whatsoever. Symptoms at this time appear consistent with SI joint arthritis and irritation with probable localized irritation of peripheral nerve from that area. No indication for emergent imaging at this time. Symptoms are inconsistent with UTI/kidney stone/STD. We will recommend continued NSAIDs as needed, we also give a 5-day burst of steroids. Will recommend close follow-up with a chiropractor. Discussed red flags for which to return. I have extensively reviewed the treatment plan and discharge instructions with the patient. I have addressed all patient concerns at this time. The patient was made aware of what symptoms to monitor for that would warrant a return to the emergency department. Discussed the plan with the patient, they demonstrate verbal understanding and agreement with our assessment and plan at this time. The documentation in this chart was dictated using [employer] dictation software. Please excuse any dictation errors. HPI General Date/Time Provider Initiated Documentation: 03/30/22 05:22. HPI Narrative: 52-year-old male with a past medical history of diabetes mellitus and high cholesterol, presents today for evaluation of left groin pain. Patient states that for the last 1 to 2 weeks he has had mild pain that goes from his left SI joint all the way towards his left groin. It does not go into the penis. It is made worse with bending forward. It is improved with stretching. It is improved with Motrin but not Tylenol. It is improved with taking a hot shower and then a cold bath. He denies any dysuria, hematuria, history of kidney stones, penile discharge. He denies any numbness tingling or weakness. He denies any falls. He denies any bowel or bladder incontinence. He denies any trauma. He states that he has had pain like this in the past, however past episodes were much more worse. It was resolved at that time with a chiropractor. Of note he is not on Eliquis anymore. No other complaints at this time. No other modifying factors. Related Data Home Medications Medication Instructions Recorded Confirmed empagliflozin 25 mg tablet 25 mg PO DAILY 03/25/21 10/03/21 (Jardiance) glipizide 5 mg tablet 5 mg PO BID 03/25/21 10/03/21 atorvastatin 10 mg tablet 10 mg PO DAILY 10/03/21 10/03/21 dulaglutide 1.5 mg/0.5 mL 1.5 mg subcut DIRECTED 10/03/21 10/03/21 subcutaneous pen injector (Trulicity) lamotrigine 25 mg tablet 25 mg PO DAILY 10/03/21 10/03/21 apixaban 5 mg tablet (Eliquis) See Rx Instructions .Route 10/04/21 .COMPLEX #74 tabs prednisone 50 mg tablet 50 mg PO DAILY #5 tabs 03/30/22 Previous Rx's Medication Instructions Recorded apixaban 5 mg tablet (Eliquis) See Rx Instructions .Route 10/04/21 .COMPLEX #74 tabs prednisone 50 mg tablet 50 mg PO DAILY #5 tabs 03/30/22 Allergies Allergy/AdvReac Type Severity Reaction Status Date / Time No Known Allergies Allergy Unverified 10/03/21 12:24 General Stated Complaint: Nk/Back Pain DANNY: 4 Review of Systems All systems reviewed & are unremarkable except as noted in HPI and below PFSH All Active Problems Chronic left SI joint pain (Acute) Nerve pain (Acute) Discharge planning issues (Acute) Bilateral pulmonary embolism (Acute) Left leg DVT (Acute) Concussion (Acute) Suspected 2019-nCoV infection (Acute) Dehydration (Acute) Medical History Bipolar disorder COVID-19 Non-insulin dependent diabetes mellitus Family History Mother Stroke Father Heart disease Diabetes Hypertension Social History Smoking/Tobacco Use Status: Never Smoking risk assessment performed?: Yes Alcohol Intake: current Alcohol Intake frequency: a few times a week Alcohol type: beer and hard liquor Drug use: Rarely Substance use type: marijuana Do you feel safe at home: Yes Do you feel safe in your relationship?: Yes Exam Narrative Exam Narrative: 1.Const: Well-nourished, Well-developed, appearing stated age 2.Eyes: PERRL, no conjunctival injection, and symmetrical lids. 3.ENT: Atraumatic external nose and ears. Moist MM. Neck: Symmetric, trachea midline, No thyromegaly. 4.CVS: +S1/S2, No murmurs or gallops. Peripheral pulses 2+ and equal in all extremities. Brisk capillary refill in all extremities. 5.RESP: Unlabored respiratory effort. Clear to auscultation bilaterally. No wheezes rales or rhonchi 6.GI: Soft, Nontender/Nondistended, No hepatosplenomegaly. No guarding or rebound. Genital exam demonstrates no penile tenderness, no scrotal tenderness or testicular tenderness. Normal cremasteric reflex on both testicles. No evidence of direct or indirect hernia. Femoral pulses are +2 bilaterally. No evidence of aneurysm. No rash or signs of shingles. 7.MSK: Normocephalic/Atraumatic, Extremities w/o deformity or ttp No cyanosis or clubbing, Normal movement of all extremities No midline tenderness to palpation over the CTLS spine. Normal ROM in flexion, extension, side bend, and rotation. Patient has +5 out of 5 strength in the lower extremities in dorsiflexion and plantarflexion, knee flexion and extension, hip flexion and extension. +2 patellar reflexes bilaterally. Normal strength for dorsiflexion and plantar flexion of the great toe bilaterally. There is +2 over 2 dorsalis pedis pulses bilaterally. There is normal sensation to the skin with light touch at the foot, knee, and hip. Normal saddle sensation. Good sensation over the deep sural nerve area bilaterally. Rectal exam deferred. Reflexes are +2 over 4 in the patellar reflex bilaterally. Locus of pain is directly over the SI joint on the left. No significant reproducibility on palpation no. 8.Skin: Warm, Dry. No rashes or lesions. 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 Sensation grossly intact, no focal neurologic deficits. 10.Psych: (AAO) x3. Appropriate mood and affect Course Vital Signs Vital signs: Vital Signs Temperature 36.2 C L 03/30/22 05:24 Pulse 78 03/30/22 05:24 Respiratory Rate 18 03/30/22 05:24 Blood Pressure 144/94 H 03/30/22 05:24 Pulse Oximetry 100 03/30/22 05:24 Temperature 36.2 C L 03/30/22 05:24 Temperature Source Tympanic 03/30/22 05:24 Pulse 78 03/30/22 05:24 Respiratory Rate 18 03/30/22 05:24 Respiratory Effort 03/30/22 05:26 Blood Pressure 144/94 H 03/30/22 05:24 Blood Pressure Position Supine 03/30/22 05:24 Pulse Oximetry 100 03/30/22 05:24 Oxygen Delivery Method Room Air 03/30/22 05:24 Oxygen Flow Rate 0 03/30/22 05:24 Pain Level 7 03/30/22 05:24
[2022-03-30] MEDS: predniSONE 20 MG TAB 60 MG PO (05:41)
[2022-03-30 05:55] LABS: Bilirubin Negative (Negative); Blood Negative (Negative); Clarity Clear (Clear); Glucose >=1000 mg/dL (Negative); Ketones Negative (Negative); Leukocyte Esterase Negative (Negative); Nitrite Negative (Negative); Specific Gravity 1.015 (1.005-1.025); Urobilinogen 0.2 EU/dL (Up TO 0.2); pH 5.5 (5-8)
== END 2022-03-30 06:08 | disposition home or self-care (01) ==
LOC: ER 06:04
PROVIDERS: Emergency Provider Student in an Organized Health Care Education/Training Program; PCP Physician Assistant
DX: M53.3 Sacrococcygeal disorders, not elsewhere classified (principal); E11.9 Type 2 diabetes mellitus without complications; Z79.84 Long term (current) use of oral hypoglycemic drugs
CPT/HCPCS: 99283; 81003; J7512

== ENCOUNTER 2022-04-20 00:31 | Emergency (ER) | payer MEDICAID, SELFPAY ==
[2022-04-20 00:37] VITALS: BP 131/90; PULSE 110; RESP 18; TEMP 36.8; O2SAT 98
[2022-04-20 00:40] VITALS: RESP 18
--- NOTE | 2022-04-20 00:43 | NUR.NOTE ---
Pt reports I have a prescription for my sugar medication but I just haven't had the time to go get it.
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
[2022-04-20 01:40] LABS: Abs Immature Grans 0.06 10^3/uL (0.0-0.06); Absolute Basophil Count 0.09 10^3/uL (0.0-0.2); Absolute Eosinophil Count 0.25 10^3/uL (0.0-0.7); Absolute Lymphocyte Count 2.52 10^3/uL (1.2-3.4); Absolute Monocyte Count 0.72 10^3/uL (0.1-0.8); Absolute Neutrophil Count 6.61 10^3/uL (1.2-6.7); Basophils % 0.9; Eosinophils % 2.4; HCT 43.9 % (40.0-50.0); HGB 15.3 g/dL (13.5-17.5); Immature Grans % 0.6; Lymphocytes % 24.6; MCH 31.6 pg (27.0-33.0); MCHC 34.9 % (32.0-36.0); MCV 91 fL (80-95); MPV 8.3 fL (8.0-11.0); Neutrophils % 64.5; Platelet Count 289 10^3/uL (130-400); RBC 4.84 10^6/uL (4.36-5.78); RDW 12.7 % (11.8-14.1); WBC 10.25 10^3/uL (4.4-10.8)
[2022-04-20 02:00] LABS: ALT 31 U/L (16-63); AST 20 U/L (15-37); Alkaline Phosphatase 113 U/L (46-116); Anion Gap 10.3 mmol/L (3-11); BUN 18 mg/dL (7-18); Bilirubin, Total 0.6 mg/dL (0.2-1.0); CO2 25.7 mmol/L (21.0-32.0); CREATININE 1.1 mg/dL (0.70-1.30); Calcium 8.8 mg/dL (8.5-10.1); Chloride 99 mmol/L (98-107); Glucose 325 mg/dL (74-106); Potassium 3.8 mmol/L (3.5-5.1); Sodium 135 mmol/L (136-145); Total Protein 7.5 g/dL (6.4-8.2)
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
[2022-04-20 02:03] LABS: ETHANOL BLOOD < 3.0 mg/dL (<10)
[2022-04-20 02:38] LABS: Bilirubin Negative (Negative); Blood Negative (Negative); Clarity Clear (Clear); Glucose >=1000 mg/dL (Negative); Ketones Negative (Negative); Leukocyte Esterase Negative (Negative); Nitrite Negative (Negative); Urobilinogen 0.2 EU/dL (Up TO 0.2)
[2022-04-20 02:50] LABS: *AMPHETAMINES SCREEN URINE Negative (Negative); *BARBITURATES SCREEN URINE Negative (Negative); *BENZODIAZEPINES SCREEN URINE Negative (Negative); Cannabinoids THC Negative (Negative); Cocaine Screen,Urine Negative (Negative); METHADONE URINE SCREEN Negative (Negative); OPIATES URINE SCREEN Negative (Negative); Tricyclic Antidepressants Negative (Negative)
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
[2022-04-20 03:18] VITALS: BP 118/64; PULSE 71; RESP 18; TEMP 36.6; O2SAT 98
== END 2022-04-20 03:18 | disposition home or self-care (01) ==
PROVIDERS: Emergency Provider Student in an Organized Health Care Education/Training Program; PCP Physician Assistant
DX: E86.0 Dehydration (principal); E11.9 Type 2 diabetes mellitus without complications; L73.8 Other specified follicular disorders; Z91.14 Patient's other noncompliance with medication regimen; F31.9 Bipolar disorder, unspecified; S09.8XXA Other specified injuries of head, initial encounter; Y00.XXXA Assault by blunt object, initial encounter; Z79.01 Long term (current) use of anticoagulants
CPT/HCPCS: 36416; 80053; 80307; 82962; 99284; 70450; 80320; 81003; 84443; 85025

== ENCOUNTER 2022-11-11 16:51 | Outpatient (REF) | payer MEDICAID, SELFPAY ==
[2022-11-11 19:19] LABS: COMMENT (LAB VIEW ONLY) 86.36 mg/dL; Microalb ug/mg Crea 11.3 ug/mg Cr
[2022-11-11 19:29] LABS: Abs Immature Grans 0.03 10^3/uL (0.0-0.06); Absolute Basophil Count 0.06 10^3/uL (0.0-0.2); Absolute Eosinophil Count 0.22 10^3/uL (0.0-0.7); Absolute Lymphocyte Count 2.41 10^3/uL (1.2-3.4); Absolute Monocyte Count 0.59 10^3/uL (0.1-0.8); Absolute Neutrophil Count 5.53 10^3/uL (1.2-6.7); Basophils % 0.7; Eosinophils % 2.5; HCT 48.7 % (40.0-50.0); Immature Grans % 0.3; Lymphocytes % 27.3; MCHC 34.9 % (32.0-36.0); MCV 89 fL (80-95); MPV 8.8 fL (8.0-11.0); Monocytes % 6.7; Neutrophils % 62.5; Platelet Count 287 10^3/uL (130-400); RBC 5.48 10^6/uL (4.36-5.78); RDW 12.6 % (11.8-14.1); RDW-SD 41.1 fL; WBC 8.84 10^3/uL (4.4-10.8)
[2022-11-11 19:51] LABS: Anion Gap 10.7 mmol/L (3-11); BUN 17 mg/dL (7-18); CO2 25.3 mmol/L (21.0-32.0); CREATININE 1.3 mg/dL (0.70-1.30); Calcium 10.2 mg/dL (8.5-10.1); Chloride 101 mmol/L (98-107); Estimated GFR 66.93 (mL/min/1.73m2); Glucose 266 mg/dL (74-106); Potassium 4.1 mmol/L (3.5-5.1); Sodium 137 mmol/L (136-145); TSH 0.84 uIU/mL (0.36-3.74)
[2022-11-11 20:04] LABS: Calculated LDL 106 mg/dL (<100); Cholesterol 236 mg/dL (<200); HDL Cholesterol 55 mg/dL (40-60); Triglyceride 377 mg/dL (<150)
== END 2022-11-11 16:52 | disposition home or self-care (01) ==
LOC: NCHCN 16:51
PROVIDERS: PCP Physician Assistant; Visit Provider Physician Assistant
DX: E11.9 Type 2 diabetes mellitus without complications (principal); R53.83 Other fatigue
CPT/HCPCS: 80048; 80061; 82043; 82570; 84439; 84443; 85025

== ENCOUNTER 2023-03-23 09:44 | Emergency (ER) | payer MEDICAID, SELFPAY ==
[2023-03-23 09:49] VITALS: BP 122/92; PULSE 88; RESP 18; TEMP 36.6; O2SAT 98
--- NOTE | 2023-03-23 09:53 | ED.GENADUL_ITS ---
Discharge Plan Disposition Patient Disposition: Home Discharge Details Clinical Impression: Cellulitis of leg, right Primary Care Provider: Omar Bloom ED Provider: Juan Garsia Home Meds and New Rx's Prescriptions: New cephalexin 500 mg capsule 500 mg PO Q6H 5 Days Qty: 20 0RF sulfamethoxazole-trimethoprim [Bactrim DS] 800-160 mg tablet 1 tab PO Q12H 5 Days Qty: 10 0RF No Action Jardiance 25 mg Tablet 25 mg PO DAILY glipizide 5 mg Tablet 5 mg PO BID atorvastatin 10 mg tablet 10 mg PO DAILY Patient Comments: TAKE ONE TABLET BY MOUTH EVERY DAY lamotrigine 25 mg tablet 25 mg PO DAILY Patient Comments: TAKE ONE TABLET BY MOUTH EVERY DAY FOR 14 DAYS; THEN TAKE TWO TABLETS DAILY Trulicity 1.5 mg/0.5 mL pen injector 1.5 mg SUBCUT DIRECTED Patient Comments: INJECT 1.5MG UNDER THE SKIN ONCE WEEKLY Rx Instructions: weekly Eliquis 5 mg tablet See Rx Instructions .ROUTE .COMPLEX Qty: 74 0RF Rx Instructions: 10 mg PO BID x 7 days, then 5 mg PO BID prednisone 50 mg tablet 50 mg PO DAILY Qty: 5 0RF sulfamethoxazole-trimethoprim [Bactrim DS] 800-160 mg tablet 1 tab PO BID Qty: 14 0RF clindamycin phosphate 1 % foam 1 applic topical DAILY Qty: 100 0RF Discharge Instructions Instructions: Cellulitis (ED) Additional Instructions: You are seen in the emergency department following your tick bite. You have signs of a local infection called cellulitis. If you develop a large red rash as we discussed or have any worsening pain or develop a fever please return to the emergency department. Otherwise please follow-up with your primary care provider as needed later this week. Prescriptions been sent for 2 antibiotics to your pharmacy which you should take as directed. Discharge Data Discharge Date/Time-TO BE ENTERED AT DEPARTURE: 03/23/23 10:13 Medical Decision Making This is an overall very well-appearing normothermic and not tachycardic nig-zpyrpdz-jvprwyybg diabetic male with right lower extremity recent tick bite and signs of local surrounding cellulitis for which he will receive antibiotics. Patient reports that he has had abscesses in the past and as result will cover for MRSA with trimethoprim/sulfamethoxazole in addition to cephalexin. No pain out of proportion to suggest necrotizing soft tissue infection. No crepitance. No chest pain or shortness of breath to suggest Lyme carditis. Lower extremity warm and well perfused so I am not concerned for any acute vascular insult. No signs of erythema migrans so we will defer Lyme coverage at this point in time. I did advise the patient that if he develops a bull's-eye rash that he should return to the emergency department as he would likely benefit from coverage with doxycycline. I also explained that if he developed fevers worsening pain or had any other concerns that he should also return to the ED. We will proceed with an empiric trial of expectant outpatient management and have the patient seen in follow-up by his primary care provider in the next week as needed. HPI General Date/Time Provider Initiated Documentation: 03/23/23 09:53 . HPI Narrative: This is a 53-year-old sos-yyfnsit-kjwucgfok diabetic male with right lower extremity tick bite. Patient reports approximately 1 week ago that he was bitten by a tick. 4 days ago he pulled a tick off when he first noticed it. He is concerned as the area has developed some redness and itching. He has not noticed a bull's-eye rash. He has a history of MRSA infections. 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 He denies routine tobacco, ethanol, and illicits. He is the father of 11 children. He has had no recent fevers chills cough nor any shortness of breath. He denies abdominal pain nausea or vomiting. No chest pain. Related Data Home Medications Medication Instructions Recorded Confirmed empagliflozin 25 mg tablet 25 mg PO DAILY 03/25/21 04/20/22 (Jardiance) glipizide 5 mg tablet 5 mg PO BID 03/25/21 04/20/22 atorvastatin 10 mg tablet 10 mg PO DAILY 10/03/21 04/20/22 dulaglutide 1.5 mg/0.5 mL 1.5 mg subcut DIRECTED 10/03/21 10/03/21 subcutaneous pen injector (Trulicity) lamotrigine 25 mg tablet 25 mg PO DAILY 10/03/21 04/20/22 apixaban 5 mg tablet (Eliquis) See Rx Instructions .Route 10/04/21 04/20/22 .COMPLEX #74 tabs prednisone 50 mg tablet 50 mg PO DAILY #5 tabs 03/30/22 04/20/22 clindamycin phosphate 1 % topical 1 applic topical DAILY #100 grams 04/20/22 foam sulfamethoxazole 800 1 tab PO BID #14 tabs 04/20/22 mg-trimethoprim 160 mg tablet (Bactrim DS) cephalexin 500 mg capsule 500 mg PO Q6H 5 days #20 caps 03/23/23 sulfamethoxazole 800 1 tab PO Q12H 5 days #10 tabs 03/23/23 mg-trimethoprim 160 mg tablet (Bactrim DS) Previous Rx's Medication Instructions Recorded apixaban 5 mg tablet (Eliquis) See Rx Instructions .Route 10/04/21 .COMPLEX #74 tabs prednisone 50 mg tablet 50 mg PO DAILY #5 tabs 03/30/22 clindamycin phosphate 1 % topical 1 applic topical DAILY #100 grams 04/20/22 foam sulfamethoxazole 800 1 tab PO BID #14 tabs 04/20/22 mg-trimethoprim 160 mg tablet (Bactrim DS) cephalexin 500 mg capsule 500 mg PO Q6H 5 days #20 caps 03/23/23 sulfamethoxazole 800 1 tab PO Q12H 5 days #10 tabs 03/23/23 mg-trimethoprim 160 mg tablet (Bactrim DS) Allergies Allergy/AdvReac Type Severity Reaction Status Date / Time No Known Allergies Allergy Unverified 04/20/22 00:42 General Stated Complaint: InsectBite DANNY: 4 PFSH All Active Problems (Updated 03/23/23 @ 10:01 by Juan Garsia MD) Cellulitis of leg, right (Acute) Discharge planning issues (Acute) Bilateral pulmonary embolism (Acute) Left leg DVT (Acute) Concussion (Acute) Suspected 2019-nCoV infection (Acute) Dehydration (Acute) Medical History Bipolar disorder COVID-19 Non-insulin dependent diabetes mellitus Family History Mother Stroke Father Heart disease Diabetes Hypertension Social History Smoking/Tobacco Use Status: Never Smoking risk assessment performed?: Yes Alcohol Intake: current Alcohol Intake frequency: a few times a week Alcohol type: beer and hard liquor Drug use: Rarely Substance use type: marijuana Do you feel safe at home: Yes Do you feel safe in your relationship?: Yes Exam Narrative Exam Narrative: General: Well-appearing in no acute distress speaking in complete sentences. Head: Normocephalic, atraumatic. Eye: Pupils equal, round reactive to light. Extraocular eye movements intact. No conjunctival injection. No scleral icterus. Ear, nose, mouth, throat: Grossly normal inspection. Normal voice, handling secretions normally. Neck: Trachea midline. Cardiovascular: Well-perfused distal extremities. Respiratory: Nonlabored respiration. Gastrointestinal: Nondistended abdomen. Musculoskeletal: No edema. Moving all 4 extremities spontaneously. Skin: On the medial aspect of the right lower extremity just inferior to the knee there is signs of a well-healing tick bite with mild surrounding erythema approximately 1.5 cm in diameter. No crepitance. No bull's-eye rash. No pain out of proportion. Right lower extremity warm well perfused. Neurologic: Alert and appropriate, no apparent acute deficits. Psychiatric: Mood and manner are appropriate. Grooming and personal hygiene are appropriate. Course Vital Signs Vital signs: Vital Signs Temperature 36.6 C 03/23/23 09:49 Pulse 88 03/23/23 09:49 Respiratory Rate 18 03/23/23 09:49 Blood Pressure 122/92 H 03/23/23 09:49 Pulse Oximetry 98 03/23/23 09:49 Temperature 36.6 C 03/23/23 09:49 Temperature Source Oral 03/23/23 09:49 Pulse 88 03/23/23 09:49 Respiratory Rate 18 03/23/23 09:49 Blood Pressure 122/92 H 03/23/23 09:49 Blood Pressure Position Sitting 03/23/23 09:49 Pulse Oximetry 98 03/23/23 09:49 Oxygen Delivery Method Room Air 03/23/23 09:49 Oxygen Flow Rate 0 03/23/23 09:49 Pain Level 0 03/23/23 09:49
[2023-03-23] MEDS: Cephalexin 500 MG CAP PO (10:02)
[2023-03-23] MEDS: Sulfameth/Trimeth DS TAB 1 TAB PO (10:02)
== END 2023-03-23 10:13 | disposition home or self-care (01) ==
PROVIDERS: Emergency Provider Emergency Medicine; PCP Physician Assistant
DX: S80.861A Insect bite (nonvenomous), right lower leg, initial encounter (principal); L03.115 Cellulitis of right lower limb; W57.XXXA Bitten or stung by nonvenomous insect and other nonvenomous arthropods, initial encounter; E11.9 Type 2 diabetes mellitus without complications
CPT/HCPCS: 99283; 99284

== ENCOUNTER 2023-08-05 10:53 | Emergency (ER) | payer MEDICAID, SELFPAY ==
[2023-08-05 10:58] VITALS: BP 124/74; PULSE 90; RESP 20; TEMP 36.6; O2SAT 99
--- NOTE | 2023-08-05 11:41 | ED.GENADUL_ITS ---
Discharge Plan Disposition Patient Disposition: Against Medical Advice Discharge Details Clinical Impression: Hyperglycemia, Hyponatremia, Hypochloremia, Oral thrush Primary Care Provider: Omar Bloom ED Provider: Mary Fuentes Home Meds and New Rx's Prescriptions: No Action pioglitazone [Actos] 15 mg tablet 15 mg PO DAILY atorvastatin 20 mg tablet 20 mg PO DAILY lamotrigine [Lamictal] 100 mg tablet 100 mg PO DAILY Trulicity 3 mg/0.5 mL pen injector 3 mg subcut QWEEK sildenafil (pulm.hypertension) 20 mg tablet 20 mg PO TID Rx Instructions: take 1-5 tab by mouth once a day as needed 1/2 hour prior to intercourse Jardiance 25 mg Tablet 25 mg PO DAILY glipizide 5 mg Tablet 5 mg PO BID Eliquis 5 mg tablet See Rx Instructions .ROUTE .COMPLEX Qty: 74 0RF Rx Instructions: 10 mg PO BID x 7 days, then 5 mg PO BID clindamycin phosphate 1 % foam 1 applic topical DAILY Qty: 100 0RF insulin glargine [Basaglar Tempo Pen(U-100)Insln] 100 unit/mL (3 mL) insulin pen 20 unit subcut DAILY Qty: 15 0RF nystatin 100,000 unit/mL suspension 400,000 unit PO QID 14 Days Qty: 224 0RF Rx Instructions: swish and spit Discharge Instructions Instructions: Hyponatremia (ED), Diabetic Hyperglycemia (ED) Discharge Data Discharge Date/Time-TO BE ENTERED AT DEPARTURE: 08/05/23 13:00 Medical Decision Making Glucose check on this patient presenting with xerostomia secondary to history of diabetes and noncompliance of medication, found to be high on glucometer, checked a blood glucose, 766, VBG does not show evidence of diabetic ketoacidosis, glucose is markedly elevated, he is not exhibiting signs of HHS at this time bicarb and gap within normal limits, hyponatremia, likely secondary to significant hyperglycemia, hypochloremia, likely secondary to significant hyperglycemia, patient is fully alert and oriented, he is ambulatory, he is of decisional capacity, his voices concerns regarding medication noncompliance and and when asked regarding this patient states he does not like the way the medications make him feel I did recommend insulin administration and consultation with his primary care physician and IV fluid with reassessment of chemistry and specifically glucose/sodium Patient is requesting to be discharged from hospital, he is leaving AGAINST MEDICAL ADVICE, he is unwilling to wait for his discharge instructions or sign a form At time my assessment he is of decisional capacity Of note I did speak with his primary care physician, Omar Bloom who does recommend initiation of long acting insulin, insulin glargine, 20 units daily and he will see patient closely in the outpatient setting, he is aware patient left AGAINST MEDICAL ADVICE HPI General Date/Time Provider Initiated Documentation: 08/05/23 11:07 . HPI Narrative: This 53-year-old gentleman presents with dry mouth. States it started about a week ago. Coincidentally stopped chewing tobacco approximately a week ago. Thinks he stopped hearing after the symptoms began. States blood sugars have been within normal limits. Denies increased thirst. Denies any change in medications. Related Data Home Medications Medication Instructions Recorded Confirmed empagliflozin 25 mg tablet 25 mg PO DAILY 03/25/21 04/20/22 (Jardiance) glipizide 5 mg tablet 5 mg PO BID 03/25/21 04/20/22 apixaban 5 mg tablet (Eliquis) See Rx Instructions .Route 10/04/21 04/20/22 .COMPLEX #74 tabs clindamycin phosphate 1 % topical 1 applic topical DAILY #100 grams 04/20/22 foam atorvastatin 20 mg tablet 20 mg PO DAILY 05/14/23 dulaglutide 3 mg/0.5 mL 3 mg subcut QWEEK 05/14/23 subcutaneous pen injector (Trulicity) lamotrigine 100 mg tablet 100 mg PO DAILY 05/14/23 (Lamictal) pioglitazone 15 mg tablet (Actos) 15 mg PO DAILY 05/14/23 sildenafil (pulm.hypertension) 20 20 mg PO TID 05/14/23 mg tablet insulin glargine 100 unit/mL (3 20 unit (0.2 mL) subcut DAILY #15 08/05/23 mL) subcutaneous pen (Basaglar mL Tempo Pen (U-100) Insulin) nystatin 100,000 unit/mL oral 400,000 unit (4 mL) PO QID 14 days 08/05/23 suspension #224 mL Previous Rx's Medication Instructions Recorded apixaban 5 mg tablet (Eliquis) See Rx Instructions .Route 10/04/21 .COMPLEX #74 tabs clindamycin phosphate 1 % topical 1 applic topical DAILY #100 grams 04/20/22 foam insulin glargine 100 unit/mL (3 20 unit (0.2 mL) subcut DAILY #15 08/05/23 mL) subcutaneous pen (Basaglar mL Tempo Pen (U-100) Insulin) nystatin 100,000 unit/mL oral 400,000 unit (4 mL) PO QID 14 days 08/05/23 suspension #224 mL Allergies Allergy/AdvReac Type Severity Reaction Status Date / Time No Known Allergies Allergy Unverified 08/05/23 13:38 General Stated Complaint: GenMedical DANNY: 4 PFSH All Active Problems (Updated 08/05/23 @ 15:36 by FAUSTO Hagan) Non compliance w medication regimen (Acute) Acute hyperglycemia (Acute) Oral thrush (Acute) Hypochloremia (Acute) Hyponatremia (Acute) Hyperglycemia (Acute) Discharge planning issues (Acute) Bilateral pulmonary embolism (Acute) Left leg DVT (Acute) Concussion (Acute) Suspected 2019-nCoV infection (Acute) Dehydration (Acute) Medical History (Updated 08/05/23 @ 15:36 by FAUSTO Hagan) Sleep apnea Dyslipidemia Erectile dysfunction Diabetic neuropathy Mood disorder Pulmonary emboli Fatigue Bipolar disorder Non-insulin dependent diabetes mellitus COVID-19 Family History Mother Stroke Father Heart disease Diabetes Hypertension Social History Smoking/Tobacco Use Status: Never Smoking risk assessment performed?: Yes Alcohol Intake: current Alcohol Intake frequency: a few times a week Alcohol type: beer and hard liquor Drug use: Rarely Substance use type: marijuana Do you feel safe at home: Yes Do you feel safe in your relationship?: Yes Course Vital Signs Vital signs: Vital Signs Temperature 36.6 C 08/05/23 10:58 Pulse 90 08/05/23 10:58 Respiratory Rate 20 08/05/23 10:58 Blood Pressure 124/74 08/05/23 10:58 Pulse Oximetry 99 08/05/23 10:58 Temperature 36.6 C 08/05/23 10:58 Temperature Source Oral 08/05/23 10:58 Pulse 90 08/05/23 10:58 Respiratory Rate 20 08/05/23 10:58 Blood Pressure 124/74 08/05/23 10:58 Blood Pressure Position Sitting 08/05/23 10:58 Pulse Oximetry 99 08/05/23 10:58 Oxygen Delivery Method Room Air 08/05/23 10:58 Oxygen Flow Rate 0 08/05/23 10:58 Lab/Test Results Lab/Test Results: 08/05/23 11:04 Tonsil - Not Specified Group A Streptococcus Culture - Pending POC Strep Test-JUDI(Rapid) Start: 08/05/23 11:29 Freq: .Rapid Strep Test Status: Active Protocol: Document 08/05/23 11:32 MILY (Rec: 08/05/23 11:32 MILY [id number]) Strep test-JUDI(Rapid)-POC POC-Strep test-JUDI (Rapid) Negative POC-Strep test-JUDI (Rapid) Negative
[2023-08-05 12:14] LABS: BE (Venous) -2 mmol/L (-2-3); HCO3 (Venous) 24 mmol/L (23-28); O2 Sat (Venous) 77 %; TCO2 (Venous) 21 mmol/L (24-29); pCO2 (Venous) 44 mmHg (41-51); pH (Venous) 7.35 (7.31-7.41); pO2 (Venous) 43 mmHg
[2023-08-05 12:16] LABS: Abs Immature Grans 0.11 10^3/uL (0.0-0.06); Absolute Eosinophil Count 0.16 10^3/uL (0.0-0.7); Absolute Lymphocyte Count 1.46 10^3/uL (1.2-3.4); Absolute Monocyte Count 0.64 10^3/uL (0.1-0.8); Basophils % 1.1; Eosinophils % 1.8; HCT 44.8 % (40.0-50.0); HGB 15.9 g/dL (13.5-17.5); Immature Grans % 1.2; Lymphocytes % 16.1; MCH 31.7 pg (27.0-33.0); MCHC 35.5 % (32.0-36.0); MCV 89 fL (80-95); MPV 8.8 fL (8.0-11.0); Monocytes % 7.1; Neutrophils % 72.7; Platelet Count 253 10^3/uL (130-400); RBC 5.02 10^6/uL (4.36-5.78); RDW 12.3 % (11.8-14.1); RDW-SD 40.3 fL; WBC 9.07 10^3/uL (4.4-10.8)
[2023-08-05 12:32] LABS: ALT 29 U/L (16-63); AST 8 U/L (15-37); Albumin 3.7 g/dL (3.4-5.0); Alkaline Phosphatase 360 U/L (46-116); Anion Gap 10.8 mmol/L (3-11); BUN 42 mg/dL (7-18); Bilirubin, Total 0.6 mg/dL (0.2-1.0); CO2 22.2 mmol/L (21.0-32.0); CREATININE 1.1 mg/dL (0.70-1.30); Chloride 87 mmol/L (98-107); Estimated GFR 81.28 (mL/min/1.73m2); Potassium 4.9 mmol/L (3.5-5.1)
[2023-08-05 12:34] LABS: Glucose 776 mg/dL (74-106); Sodium 120 mmol/L (136-145)
== END 2023-08-05 13:00 | disposition left against medical advice (07) ==
PROVIDERS: Emergency Provider Physician Assistant; PCP Physician Assistant
DX: Z91.148 Patient's other noncompliance with medication regimen for other reason (principal); R73.9 Hyperglycemia, unspecified; B37.0 Candidal stomatitis; E87.1 Hypo-osmolality and hyponatremia
CPT/HCPCS: 80053; 82805; 82962; 87880; 96360; 99284; 85025; 87081

== ENCOUNTER 2023-08-05 13:31 | Emergency (ER) | payer MEDICAID, SELFPAY ==
[2023-08-05] VITALS (19 sets, daily range): BP systolic 124–133; BP diastolic 81–86; PULSE 83–100; RESP 11–24; TEMP 37; O2SAT 99
--- NOTE | 2023-08-05 13:30 | RT.EKG_ITS ---
APPROVED REPORT Exam: Resting ECG Reason for Exam: weakness Patient Location: E HR:89 bpm ECG Measurements Heart Rate 89 AXIS AK 166 P 52 QRSd 112 QRS 0 QT 362 T 30 QTc 442 Conclusion Sinus rhythm...normal P axis, V-rate 60- 99 ST elev, probable normal early repol pattern...ST elevation, age<55
[2023-08-05] MEDS: Normal Saline 1,000 ML 1000 ML IV ×2 (14:05→16:27)
[2023-08-05 14:06] LABS: Magnesium 2.2 mg/dL (1.8-2.4)
[2023-08-05 14:54] LABS: Glucose 734 mg/dL (74-106)
--- NOTE | 2023-08-05 15:25 | ED.GENADUL_ITS ---
Discharge Plan Disposition Patient Disposition: Home Condition: Good Discharge Details Clinical Impression: Acute hyperglycemia, Non compliance w medication regimen Primary Care Provider: Omar Bloom ED Provider: Matthew Quinones Home Meds and New Rx's Prescriptions: New insulin glargine [Basaglar Tempo Pen(U-100)Insln] 100 unit/mL (3 mL) insulin pen 20 unit subcut DAILY Qty: 15 0RF nystatin 100,000 unit/mL suspension 400,000 unit PO QID 14 Days Qty: 224 0RF Rx Instructions: swish and spit Continued pioglitazone [Actos] 15 mg tablet 15 mg PO DAILY atorvastatin 20 mg tablet 20 mg PO DAILY lamotrigine [Lamictal] 100 mg tablet 100 mg PO DAILY Trulicity 3 mg/0.5 mL pen injector 3 mg subcut QWEEK sildenafil (pulm.hypertension) 20 mg tablet 20 mg PO TID Rx Instructions: take 1-5 tab by mouth once a day as needed 1/2 hour prior to intercourse Jardiance 25 mg Tablet 25 mg PO DAILY glipizide 5 mg Tablet 5 mg PO BID Eliquis 5 mg tablet See Rx Instructions .ROUTE .COMPLEX Qty: 74 0RF Rx Instructions: 10 mg PO BID x 7 days, then 5 mg PO BID clindamycin phosphate 1 % foam 1 applic topical DAILY Qty: 100 0RF Discontinued prednisone 50 mg tablet 50 mg PO DAILY Qty: 5 0RF sulfamethoxazole-trimethoprim [Bactrim DS] 800-160 mg tablet 1 tab PO BID Qty: 14 0RF Discharge Instructions Instructions: Diabetic Hyperglycemia (ED) Additional Instructions: Please follow-up with your doctor, this is very important, having blood sugar this high can cause many issues including blindness and kidney failure Call your doctor tomorrow for follow-up, please reinitiate all your medications and use the insulin glargine as prescribed Your prescription is at your pharmacy Please return earlier should you have new or worsening complaints Also writing a prescription for nystatin, use this for at least 48 hours after your symptoms of dry mouth resolved, I suspect this is from thrush from your blood sugar being so high Referrals: Omar Bloom [Primary Care Provider] - 1 day Discharge Data Discharge Date/Time-TO BE ENTERED AT DEPARTURE: 08/05/23 17:46 Medical Decision Making <FAUSTO Hagan - Last Filed: 08/06/23 11:40> 53-year-old male presenting alert and oriented, of decisional capacity, oropharyngeal thrush noted on exam, in the setting of a diabetic who is noncompliant with medications will check a fingerstick, initial reading was high, will check blood work, glucose is 763, sodium of 120, and chloride of 87, likely secondary to acute significant hyperglycemia Initially patient left AGAINST MEDICAL ADVICE and did return for reassessment, glucose on presentation 734, will treat with 20 units of subcu insulin, no evidence of HHS clinically, VBG with a normal pH and no gap noted previously, low suspicion for diabetic ketoacidosis or HHS We will give NS and repeat BMP when patient's glucose improves I spoke with patient's primary care physician, Omar Bloom and the recommendation is that patient be initiated on insulin glargine 20 units, this was prescribed Care will be transitioned to Dr. Quinones pending reassessment of blood glucose/chemistry to ensure sodium and chloride improved after insulin administration in addition to BUN which is 42 on initial presentation, subcu insulin was administered at 1530 Will repeat glucose at 430 and hourly Patient's PCP will reevaluate this week, placed on PCP follow-up Care transitioned to Dr Quinones pending repeat labs and assessment HPI <FAUSTO Hagan - Last Filed: 08/06/23 11:40> General Date/Time Provider Initiated Documentation: 08/05/23 13:35 . HPI Narrative: 53-year-old male with history of medication noncompliance, leg DVTs with bilateral PEs, diabetes presents with report of dry mouth. He states its been present for the past week. He states he is in the past 2 months stopped all of his medications secondary to the way they made him feel. He denies any increased hunger, thirst, urination. He denies chest pain or shortness of breath. He denies any dizziness or weakness. Related Data Home Medications Medication Instructions Recorded Confirmed empagliflozin 25 mg tablet 25 mg PO DAILY 03/25/21 04/20/22 (Jardiance) glipizide 5 mg tablet 5 mg PO BID 03/25/21 04/20/22 apixaban 5 mg tablet (Eliquis) See Rx Instructions .Route 10/04/21 04/20/22 .COMPLEX #74 tabs clindamycin phosphate 1 % topical 1 applic topical DAILY #100 grams 04/20/22 foam atorvastatin 20 mg tablet 20 mg PO DAILY 05/14/23 dulaglutide 3 mg/0.5 mL 3 mg subcut QWEEK 05/14/23 subcutaneous pen injector (Trulicity) lamotrigine 100 mg tablet 100 mg PO DAILY 05/14/23 (Lamictal) pioglitazone 15 mg tablet (Actos) 15 mg PO DAILY 05/14/23 sildenafil (pulm.hypertension) 20 20 mg PO TID 05/14/23 mg tablet insulin glargine 100 unit/mL (3 20 unit (0.2 mL) subcut DAILY #15 08/05/23 mL) subcutaneous pen (Basaglar mL Tempo Pen (U-100) Insulin) nystatin 100,000 unit/mL oral 400,000 unit (4 mL) PO QID 14 days 08/05/23 suspension #224 mL Previous Rx's Medication Instructions Recorded apixaban 5 mg tablet (Eliquis) See Rx Instructions .Route 10/04/21 .COMPLEX #74 tabs clindamycin phosphate 1 % topical 1 applic topical DAILY #100 grams 04/20/22 foam insulin glargine 100 unit/mL (3 20 unit (0.2 mL) subcut DAILY #15 08/05/23 mL) subcutaneous pen (Basaglar mL Tempo Pen (U-100) Insulin) nystatin 100,000 unit/mL oral 400,000 unit (4 mL) PO QID 14 days 08/05/23 suspension #224 mL Allergies Allergy/AdvReac Type Severity Reaction Status Date / Time No Known Allergies Allergy Unverified 08/05/23 13:38 General Stated Complaint: Diabetes DANNY: 3 PFSH <FAUSTO Hagan - Last Filed: 08/06/23 11:40> All Active Problems (Updated 08/05/23 @ 15:36 by FAUSTO Hagan) Non compliance w medication regimen (Acute) Acute hyperglycemia (Acute) Oral thrush (Acute) Hypochloremia (Acute) Hyponatremia (Acute) Hyperglycemia (Acute) Discharge planning issues (Acute) Bilateral pulmonary embolism (Acute) Left leg DVT (Acute) Concussion (Acute) Suspected 2019-nCoV infection (Acute) Dehydration (Acute) Medical History (Updated 08/05/23 @ 15:36 by FAUSTO Hagan) Sleep apnea Dyslipidemia Erectile dysfunction Diabetic neuropathy Mood disorder Pulmonary emboli Fatigue Bipolar disorder Non-insulin dependent diabetes mellitus COVID-19 Family History Mother Stroke Father Heart disease Diabetes Hypertension Social History Smoking/Tobacco Use Status: Never Smoking risk assessment performed?: Yes Alcohol Intake: current Alcohol Intake frequency: a few times a week Alcohol type: beer and hard liquor Drug use: Rarely Substance use type: marijuana Do you feel safe at home: Yes Do you feel safe in your relationship?: Yes Course <FAUSTO Hagan - Last Filed: 08/06/23 11:40> Vital Signs Vital signs: Vital Signs Temperature 37.0 C 08/05/23 13:34 Pulse 95 H 08/05/23 13:34 Respiratory Rate 18 08/05/23 13:34 Blood Pressure 133/86 08/05/23 13:34 Pulse Oximetry 99 08/05/23 13:34 Temperature 37.0 C 08/05/23 13:34 Pulse 95 H 08/05/23 13:34 Pulse 93 H 08/05/23 14:40 Respiratory Rate 18 08/05/23 14:40 Respiratory Effort Normal 08/05/23 13:39 Blood Pressure 133/86 08/05/23 13:34 Blood Pressure Position Sitting 08/05/23 13:34 Pulse Oximetry 99 08/05/23 13:34 Oxygen Delivery Method Room Air 08/05/23 13:34 Oxygen Flow Rate 0 08/05/23 13:34 Lab/Test Results Lab/Test Results: Laboratory Tests Range/Units 08/05/23 08/05/23 13:50 13:50 Glucose (74-106) mg/dL 734 H* Magnesium (1.8-2.4) mg/dL 2.2 Sign Out <FAUSTO Hagan - Last Filed: 08/06/23 11:40> Sign Out Data: Sign Out Comment: pending repeat BMP and down trending glucose Last updated by Mary Fuentes PA at 08/05/23 16:08 PAWSS <FAUSTO Hagan - Last Filed: 08/06/23 11:40> Have you Been Recently Intoxicated or Drunk Within the Last 30 days?: No Have you Ever Experienced Previous Episodes of Alcohol Withdrawal?: No Have you ever Experienced Withdrawal Seizures?: No Have you ever Experienced Delirium Tremens(DT)s?: No Have you ever undergone Alcohol Rehabilitation Treatment (i.e, inpt ot out patient treatment programs)?: No Have you ever Experienced Blackouts?: No Have you ever Combined Alcohol with other Downers within the last 90 days?: No Have you ever Combined Alcohol with any other Substance of Abuse during the last 90 days?: No Positive Blood Alcohol level on Presentation? [PCS.BAL]: No Evidence of Increased Autonomic Activity (i.e. HR>120, tremor, sweating, agitation, nausea)?: No Result: 0 <Matthew Quinones MD - Last Filed: 08/05/23 18:37> Result: 0
[2023-08-05] MEDS: Insulin REGULAR-Human 100 UNITS/ML UNIT 20 UNITS SC (15:31)
--- NOTE | 2023-08-05 15:47 | NUR.NOTE ---
Referral faxed for Pt to be seen for Reassessment this week. Nursing Note:
--- NOTE | 2023-08-05 16:18 | W.EDPROG ---
Date of service: 08/05/23 Time of Service: 16:18 Medical Decision Making 1600 : care assumed from FAUSTO Armstrong. Care plan discussed. Plan for meds, fluids and lab recheck. Updated patient's . Patient currently sleeping comfortably. 1645: Glucose currently in the 400s. Improving with medication and IV fluids 1730: Blood glucose continues to improve. I reviewed the CMP which is also improving. At this point the patient is stable for discharge and will continue with the follow-up plan as initiated by FAUSTO Lab Data Labs: Laboratory Tests Range/Units 08/05/23 08/05/23 08/05/23 13:50 13:50 16:40 Sodium (136-145) mmol/L 130 L D Potassium (3.5-5.1) mmol/L 3.5 D Chloride (98-107) mmol/L 97 L Carbon Dioxide (21.0-32.0) mmol/L 23.8 Anion Gap (3-11) mmol/L 9.2 BUN (7-18) mg/dL 32 H Creatinine (0.70-1.30) mg/dL 0.7 Est GFR (CKD-EPI 2020) (mL/min/1.73m2) 111.56 Glucose (74-106) mg/dL 734 H* 428 H Hemoglobin A1c (<5.7) % Calcium (8.5-10.1) mg/dL 8.9 Magnesium (1.8-2.4) mg/dL 2.2 Total Bilirubin (0.2-1.0) mg/dL 0.4 AST (15-37) U/L 12 L ALT (16-63) U/L 30 Alkaline Phosphatase (46-116) U/L 231 H Total Protein (6.4-8.2) g/dL 6.7 Albumin (3.4-5.0) g/dL 3.1 L Range/Units 08/05/23 16:40 Sodium (136-145) mmol/L Potassium (3.5-5.1) mmol/L Chloride (98-107) mmol/L Carbon Dioxide (21.0-32.0) mmol/L Anion Gap (3-11) mmol/L BUN (7-18) mg/dL Creatinine (0.70-1.30) mg/dL Est GFR (CKD-EPI 2020) (mL/min/1.73m2) Glucose (74-106) mg/dL Hemoglobin A1c (<5.7) % > 13.0 H Calcium (8.5-10.1) mg/dL Magnesium (1.8-2.4) mg/dL Total Bilirubin (0.2-1.0) mg/dL AST (15-37) U/L ALT (16-63) U/L Alkaline Phosphatase (46-116) U/L Total Protein (6.4-8.2) g/dL Albumin (3.4-5.0) g/dL Sign Out Sign Out Data: Sign Out Comment: pending repeat BMP and down trending glucose Last updated by Mary Fuentes PA at 08/05/23 16:08 Discharge Plan Disposition Patient Disposition: Home Condition: Good Discharge Details Clinical Impression: Acute hyperglycemia, Non compliance w medication regimen Primary Care Provider: Omar Bloom ED Provider: Matthew Quinones Home Meds and New Rx's Prescriptions: New insulin glargine [Basaglar Tempo Pen(U-100)Insln] 100 unit/mL (3 mL) insulin pen 20 unit subcut DAILY Qty: 15 0RF nystatin 100,000 unit/mL suspension 400,000 unit PO QID 14 Days Qty: 224 0RF Rx Instructions: swish and spit Continued pioglitazone [Actos] 15 mg tablet 15 mg PO DAILY atorvastatin 20 mg tablet 20 mg PO DAILY lamotrigine [Lamictal] 100 mg tablet 100 mg PO DAILY Trulicity 3 mg/0.5 mL pen injector 3 mg subcut QWEEK sildenafil (pulm.hypertension) 20 mg tablet 20 mg PO TID Rx Instructions: take 1-5 tab by mouth once a day as needed 1/2 hour prior to intercourse Jardiance 25 mg Tablet 25 mg PO DAILY glipizide 5 mg Tablet 5 mg PO BID Eliquis 5 mg tablet See Rx Instructions .ROUTE .COMPLEX Qty: 74 0RF Rx Instructions: 10 mg PO BID x 7 days, then 5 mg PO BID clindamycin phosphate 1 % foam 1 applic topical DAILY Qty: 100 0RF Discontinued prednisone 50 mg tablet 50 mg PO DAILY Qty: 5 0RF sulfamethoxazole-trimethoprim [Bactrim DS] 800-160 mg tablet 1 tab PO BID Qty: 14 0RF Discharge Instructions Instructions: Diabetic Hyperglycemia (ED) Additional Instructions: Please follow-up with your doctor, this is very important, having blood sugar this high can cause many issues including blindness and kidney failure Call your doctor tomorrow for follow-up, please reinitiate all your medications and use the insulin glargine as prescribed Your prescription is at your pharmacy Please return earlier should you have new or worsening complaints Also writing a prescription for nystatin, use this for at least 48 hours after your symptoms of dry mouth resolved, I suspect this is from thrush from your blood sugar being so high Referrals: Omar Bloom [Primary Care Provider] - 1 day
[2023-08-05 17:03] LABS: ALT 30 U/L (16-63); AST 12 U/L (15-37); Albumin 3.1 g/dL (3.4-5.0); Alkaline Phosphatase 231 U/L (46-116); Anion Gap 9.2 mmol/L (3-11); BUN 32 mg/dL (7-18); Bilirubin, Total 0.4 mg/dL (0.2-1.0); CO2 23.8 mmol/L (21.0-32.0); CREATININE 0.7 mg/dL (0.70-1.30); Calcium 8.9 mg/dL (8.5-10.1); Chloride 97 mmol/L (98-107); Estimated GFR 111.56 (mL/min/1.73m2); Glucose 428 mg/dL (74-106); Potassium 3.5 mmol/L (3.5-5.1); Sodium 130 mmol/L (136-145); Total Protein 6.7 g/dL (6.4-8.2)
[2023-08-05 17:24] LABS: Hemoglobin A1C > 13.0 % (<5.7)
== END 2023-08-05 17:46 | disposition home or self-care (01) ==
PROVIDERS: Physician Assistant; Emergency Provider Emergency Medicine; PCP Physician Assistant
DX: Z91.148 Patient's other noncompliance with medication regimen for other reason (principal); B37.0 Candidal stomatitis; R73.9 Hyperglycemia, unspecified; E87.1 Hypo-osmolality and hyponatremia
CPT/HCPCS: 80053; 82947; 82962; 93005; 96360; 99284; 83036; 83735; 93010

== ENCOUNTER 2023-08-10 18:36 | Outpatient (REF) | payer MEDICAID, SELFPAY ==
--- OUTSIDE RECORDS SUMMARY | 2023-08-10 18:42 | XMS_ITS | Continuity of Care Document ---
Author Name Unknown Organization [facility] Address [facility] [address] [place] [address] Phone [phone]
[2023-08-10 19:32] LABS: Anion Gap 9.2 mmol/L (3-11); BUN 18 mg/dL (7-18); CO2 22.8 mmol/L (21.0-32.0); Calcium 9.1 mg/dL (8.5-10.1); Chloride 98 mmol/L (98-107); Estimated GFR 91.12 (mL/min/1.73m2); Glucose 451 mg/dL (74-106); Potassium 4.2 mmol/L (3.5-5.1); Sodium 130 mmol/L (136-145)
== END 2023-08-10 18:37 | disposition home or self-care (01) ==
LOC: NCHCN 18:36
PROVIDERS: PCP Physician Assistant; Visit Provider Physician Assistant
DX: E11.9 Type 2 diabetes mellitus without complications (principal)
CPT/HCPCS: 80048

== ENCOUNTER → 2023-08-24 01:56 | Outpatient (CLI) | payer MEDICAID, SELFPAY ==
--- OUTSIDE RECORDS SUMMARY | 2023-08-13 01:39 | XMS_ITS | Continuity of Care Document ---
Author Name Unknown Organization [facility] Address [facility] [address] [place] [address] Phone [phone]
--- NOTE | 2023-08-24 | DI.US_ITS ---
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 TECHNIQUE: Ultrasound carotids performed using grayscale, color-flow, and spectral Doppler imaging. COMPARISON: No exams were available for comparison FINDINGS: RIGHT CAROTID ARTERY: Plaque: Minimal plaque in the bulb. Velocity elevation: None. LEFT CAROTID ARTERY: Plaque: Minimal plaque in the bulb. Velocity elevation: None. VERTEBRAL ARTERIES: Antegrade flow. Measurements: R Bulb: 62cm/s PS / 16.7cm/s ED R CCA: 77.5cm/s PS / 25.7cm/s ED R ECA: 96.9cm/s PS / 16.7cm/s ED R ICA Prox: 44.3cm/s PS / 19.7cm/s ED R ICA Mid: 39.3cm/s PS / 18cm/s ED R ICA Distal: 45.1cm/s PS /21.5cm/s ED R Vert: 24.8cm/s PS / 10.6cm/s ED R SVR: 0.8 R DVR: 0.6 L Bulb: 45.2cm/s PS / 10.3cm/s ED L CCA: 68.8cm/s PS / 20.7cm/s ED L ECA: 99.7cm/s PS / 23.4cm/s ED L ICA Prox: 55.8cm/s PS / 25.1cm/s ED L ICA Mid: 46cm/s PS / 22.9cm/s ED L ICA Distal: 40.3cm/s PS / 18cm/s ED L Vert: 43.7cm/s PS / 17.4cm/s ED L SVR: 0.8 L DVR: 1.2 IMPRESSION: No evidence for hemodynamically significant carotid stenosis. Criteria for Carotid Stenosis: Normal: ICA PSV <125 cm/s no plaque or intimal thickening is visible. <50% stenosis: ICA PSV <125 cm/s and plaque or intimal thickening is visible. 50-69% stenosis: ICA PSV is 125-250 cm/s and plaque is visible. >70% stenosis to near occlusion: ICA PSV >250 cm/s with visible plaque and luminal narrowing. DATA REPOSITORY:
--- OUTSIDE RECORDS SUMMARY | 2023-08-24 01:57 | XMS_ITS | Continuity of Care Document ---
Author Name Unknown Organization [facility] Address [facility] [address] [place] [address] Phone [phone]
== END ==
PROVIDERS: PCP Physician Assistant; Visit Provider Physician Assistant
DX: E11.319 Type 2 diabetes mellitus with unspecified diabetic retinopathy without macular edema (principal)
CPT/HCPCS: 93880

== ENCOUNTER 2024-03-30 10:31 | Day surgery (SDC) | payer MEDICAID, SELFPAY ==
--- NOTE | 2024-03-29 19:40 | W.PM.DSUDISC ---
Date of service: 03/30/24 Time of Service: 12:09 Discharge Plan Disposition Patient Disposition: Home Condition: Good Discharge Details Reason For Visit: screening colonoscopy Attending Provider: Goran Ponce Primary Care Provider: Omar Bloom Home Meds and New Rx's Prescriptions: Continued sildenafil (pulm.hypertension) 20 mg tablet 20 mg PO PRN PRN Rx Instructions: administer doses at least 4-6 hours apart pioglitazone [Actos] 15 mg tablet 15 mg PO DAILY atorvastatin 20 mg tablet 20 mg PO DAILY Ozempic 1 mg/dose (4 mg/3 mL) pen injector 1 mg subcut QWEEK Jardiance 25 mg Tablet 25 mg PO DAILY glipizide 5 mg Tablet 5 mg PO BID Discontinued bisacodyl [Dulcolax (bisacodyl)] 5 mg tablet,delayed release (DR/EC) 5 mg PO ONCE Qty: 4 0RF Rx Instructions: Take per colonoscopy instructions provided by ordering providers office polyethylene glycol 3350 17 gram/dose powder 17 g PO ONCE Qty: 238 0RF Rx Instructions: Take per colonoscopy instructions provided by ordering providers office Discharge Instructions Instructions: Diverticulosis Diet (GEN) Additional Instructions: Jose E, we were able to complete your colonoscopy today without any difficulty. Your prep was fine, and I could see everything quite nicely. There were no tumors or polyps. There are just a few scattered diverticula throughout the length of your colon. Diverticula are small weak spots in the muscular part of the colon wall. Is very common to get these as we age. Sometimes, the pockets can get infected and inflamed. When that happens, patients typically have quite significant abdominal pain that usually associated with fevers and not feeling well. Often times patients are treated with antibiotics. I do not think the ears would bother you at all, but I did attach some information here regarding typical dietary recommendations for patients with diverticular disease. Essentially, staying well-hydrated, avoiding constipation, and maintaining plenty of fiber in your diet are the hallmarks of a healthy diet for your colon. With a negative screening colonoscopy, and no other specific risk factors, you will need another colonoscopy in 10 years. 1. If tolerated, consume a soft, low fiber diet for 1-2 days. 2[address] Do not drive, drink alcohol, operate machinery, make critical decisions, or do activities that require coordination or balance for 24 hours. 3. Because air was put into your colon during the procedure, expelling air from your rectum (passing gas or farting) is normal. 4. You may not have a bowel movement for 1-3 days because of the colonoscopy prep. This is normal. 5. Go directly to the emergency room if you notice any of the following: Develop chills (warm to touch), or if you have a thermometer and your temperature is above 101 Difficulty breathing or difficultly swallowing Persistent vomiting Severe abdominal pain, other than gas cramps Severe chest pain Black, tarry stools Any bleeding ? exceeding one tablespoon 6. Call your physician if the site where your intravenous was started becomes red, swollen, painful, and warm to touch. 7. Your physician has reviewed your pre-procedure medications. Please continue to take those medications as previously ordered. You will be given specific information/education regarding any changes to your medications before leaving. Stand Alone Forms: Anesthesia Discharge InstAga Mukherjee (DSU) Activity:: Activity as Tolerated Diet:: As Tolerated Discharge Orders Discharge Orders: Discharge Order (Routine); Ordered 03/29/24 Ordered By: Goran Ponce DS: Diagnosis Discharge Diagnosis (1) Encounter for screening colonoscopy: Status: Acute Asessment and Plan: Negative screening colonoscopy; recommend 10-year follow-up interval
--- NOTE | 2024-03-29 19:42 | COLE_ITS ---
Date of service: 03/30/24 Time of Service: 12:11 Colonoscopy Report Date of procedure: 03/30/24 Pre-op diagnosis general: screening colonoscopy Post-op diagnosis procedure note: other (Negative screening colonoscopy) Procedure: colonoscopy Surgeon: Goran Ponce Anesthesia Type: General:No Airway Estimated blood loss (mL): 0 Pathology: none sent Complications: None Disposition: same day Indications: Quinton is a 54 year old man who needs a screening colonoscopy Prep: Miralax/Dulcolax Procedure Start Time: 11:45 Procedure End Time: 12:02 Retraction Time: 10 Findings: Rare diverticula, otherwise negative screening colonoscopy Procedure Description: Prior to the procedure, Jose E and his asked that she be present throughout the course of the colonoscopy. I discussed this request with the OR team in room staff. The networking administrator from risk-management was also involved. I explained to Jose E and his that that request was very much out of the ordinary for us. However no specific individual with the procedure objected. I explained to Jose E and his that the [facility] does not force a policy that if it anytime family or friends become disruptive during the course of patient care, they will be asked to leave. I think Jose E and his both understood that clearly. With no other objections, we felt that it would be reasonable to proceed and accommodate the request. Were also very clear that in no way whatsoever can I guarantee similar treatment in the future. Generally, I think that most providers would not agree to this request. Having made all of that clear, we proceeded to the procedure room for the colonoscopy. After the induction of anesthesia, and with the patient in left lateral decubitus position, I began by performing an external anorectal exam.? Perineum and skin were normal, as was the anal verge.? There was no evidence of external hemorrhoids.? Next, I performed a digital rectal exam.? I did not appreciate any abnormal findings.? Next, I advanced a colonoscope into the rectal vault.? I performed retroflexion. This appeared normal.? Using insufflation, I then advanced the colonoscope beyond the rectal folds and into the sigmoid colon before advancing towards the cecum.? The quality of the prep was adequate.? The scope was noted to be in the cecum by identification of the ileocecal valve and appendiceal orifice.? I then began withdrawing the colonoscope using repeated irrigation as necessary for full evaluation of the colonic mucosa. ?Once the scope was withdrawn to the level of the rectum, great care was taken to examine portions of the rectal folds.? Finally, the scope was withdrawn and the patient was brought to the same-day surgery recovery unit as the anesthetic wore off. ?The findings and instructions were shared with the patient prior to discharge. [place] Bowel Prep [place] Bowel Prep Right Colon: 3 Left Colon: 2 Transverse Colon: 3 Total Score: 8
--- NOTE | 2024-03-30 06:28 | W.ANESPRE ---
General Info Date of Service Date Performed: 03/30/24 Height: 5 ft 7 in Weight: 81.647 kg Body Mass Index (BMI): 28.1 Surgical Procedure: Operation Date: 03/30/24 11:35 Proposed Procedure Side Surgeon p Magdaleno Ponce MD Meds Allergies and Home Medications Allergies Allergy/AdvReac Type Severity Reaction Status Date / Time No Known Allergies Allergy Unverified 08/05/23 13:38 Home Medication Medication Instructions Recorded empagliflozin 25 mg tablet 25 mg PO DAILY 03/25/21 (Jardiance) glipizide 5 mg tablet 5 mg PO BID 03/25/21 atorvastatin 20 mg tablet 20 mg PO DAILY 05/14/23 pioglitazone 15 mg tablet (Actos) 15 mg PO DAILY 05/14/23 semaglutide 1 mg/dose (4 mg/3 mL) 1 mg subcut QWEEK 03/14/24 subcutaneous pen injector (Ozempic) sildenafil (pulm.hypertension) 20 20 mg PO PRN PRN 03/18/24 mg tablet Current Visit Medications: Current Medications Generic Name Dose Route Start Last Admin Trade Name Freq PRN Reason Stop Dose Admin Hyoscyamine Sulfate 0.125 mg 03/29/24 19:43 Hyoscyamine 0.125 Mg Sl/Oral/Chew SL 04/28/24 19:42 DIRECTED PRN Ringer's Solution 1,000 mls @ 80 mls/hr 03/30/24 06:00 IV 03/30/24 23:59 INFUSION [facility] IV Miscellaneous Supplies 1 each 03/30/24 06:00 Iv Access IV 03/30/24 23:59 DIRECTED EULALIO Ondansetron HCl 4 mg 03/29/24 19:43 Ondansetron 4 Mg/2 Ml Vial IVP 04/28/24 19:42 Q4H PRN PRN Nausea / Vomiting Sodium Chloride 0 ml 03/30/24 06:00 Normal Saline Flush 10 Ml Syr IV 03/30/24 23:59 PRN PRN Sodium Chloride 0 ml 03/30/24 06:00 Normal Saline 10 Ml Vial IJ 03/30/24 23:59 DIRECTED PRN Sterile Water 0 ml 03/30/24 06:00 Water,Injection,Sterile 10 Ml Vial IJ 03/30/24 23:59 DIRECTED PRN PFSH Active Problems Active Problems: Problem Status Onset Code Encounter for screening colonoscopy Z12.11 Discharge planning issues Z02.9 Bilateral pulmonary embolism I26.99 Left leg DVT I82.402 Concussion S06.0X9A Suspected 2019-nCoV infection Z20.822 Dehydration E86.0 Medical History Medical History (Updated 03/29/24 @ 19:41 by Goran Ponce MD) Hyperlipidemia Type II diabetes mellitus Sleep apnea Dyslipidemia Erectile dysfunction Diabetic neuropathy Mood disorder Pulmonary emboli Fatigue Bipolar disorder Non-insulin dependent diabetes mellitus COVID-19 Tobacco Smoking/Tobacco Use Status: Never Alcohol Alcohol Intake: current Alcohol intake frequency: a few times a week Alcohol type: beer and hard liquor Substance Use Substance use: Rarely Substance use type: marijuana Vital Signs and Lab Results Lab Results Blood Type / Crossmatch: No Data to Display Complete Blood Count: No Data to Display Complete Metabolic Panel: No Data to Display Liver Function Panel: No Data to Display Coagulation Panel: No Data to Display Cardiac Panel: No Data to Display Arterial Blood Gas: No Data to Display Venous Blood Gas: No Data to Display Pancreas Panel: No Data to Display Thyroid Panel: No Data to Display Infectious Disease: No Data to Display Blood Cultures: No Data to Display Toxicology Panel: No Data to Display Imaging and Studies Imaging and Studies Study information below may be from another EMR and interpreted by another provider. Please see original notes in EMR for more complete details. EKG Summary: 08/17: sinus. Echocardiogram Summary: 10/15: LVEF 55%. no sig valve issues. Carotid Artery Summary:: 08/17: no sig stenosis. Anesthesia Assessment and Plan Anesthesia History Personal History: No History of Anesthesia Complications Family History: No Family History of Anesthesia Complications Exercise Tolerance Exercise Tolerance: Metabolic Equivalents>4 Cardiac & Pulmonary Exam Cardiac Exam: Normal S1/S2 Heart Sounds Pulmonary Exam: Clear Bilateral Breath Sounds Implantable Cardiac Device Does patient have a Pacemaker or an ICD?: No Airway Exam Known Difficult Airway: No Mallampati Class: 3 Mouth Opening: Narrow (< 3cm) Thyromental Distance: Greater than 3 cm Neck Range of Motion: Full ROM Neck Circumference: Normal Teeth Condition: Normal Dentition ASA Classification ASA Score: ASA 2 Emergency Case?: No NPO Status NPO Status: NPO Clears >2 hours, Solids >8 hours Anesthesia Plan Resuscitation Status: Full Code Anesthesia Technique: General Anesthesia Airway Planned: Natural Airway Monitors Used: Standard Monitors Preoperative Comments:: 54 yo male for colo. Sig PMHx: CHRISTEL, DMII (with neuropathy. glipizide, empagliflozin, semaglutide - last dose 14 days ago), PE/DVT, bipolar.
[2024-03-30 10:58] VITALS: BMI 28.1
[2024-03-30 10:59] VITALS: BP 114/85; PULSE 99; RESP 16; TEMP 37.2; O2SAT 98
[2024-03-30] MEDS: Lactated Ringers 1,000 ML 80 ML IV (11:27)
[2024-03-30 12:09] VITALS: BP 98/69; PULSE 94; RESP 16; TEMP 36.2; O2SAT 100
--- NOTE | 2024-03-30 12:12 | W.ANESPOSTOP ---
Postoperative Evaluation Date, Time and Location Date Performed: 03/30/24 Time Performed: 12:12 Patient Location: Day Surgery Unit Vital Signs Most Recent Imported Vital Signs: Most Recent Vital Signs Temp Pulse Resp BP Pulse Ox 36.2 C L 94 H 16 98/69 L 100 03/30/24 12:09 03/30/24 12:09 03/30/24 12:09 03/30/24 12:09 03/30/24 12:09 Pain Score Most Recent Pain Score: Most Recent Pain Score Pain Level 0 03/30/24 12:09 Assessment Mental Status: Arousable with meaningful communication Airway and Respiratory Function: Patent airway with normal (patient baseline) respiratory exam Cardiovascular Function: Hemodynamically Stable Hydration Status: Adequately Hydrated Nausea & Vomiting: No Nausea or Vomiting Pain: Pt. Denies Any Pain Peripheral Nerve Block: Patient did not receive a nerve block
[2024-03-30 12:39] VITALS: BP 116/82; PULSE 90; RESP 16; TEMP 36.2; O2SAT 100
== END 2024-03-30 12:44 | disposition home or self-care (01) ==
LOC: SUR 10:31
PROVIDERS: PCP Physician Assistant; Visit Provider Surgery
PROC: 0DJD8ZZ Inspection of Lower Intestinal Tract, Via Natural or Artificial Opening Endoscopic (ICD-10-PCS; CPT 45378; principal; 2024-03-30 11:30)
DX: Z12.11 Encounter for screening for malignant neoplasm of colon (principal); E11.9 Type 2 diabetes mellitus without complications; G47.33 Obstructive sleep apnea (adult) (pediatric); I82.402 Acute embolism and thrombosis of unspecified deep veins of left lower extremity
CPT/HCPCS: 45378; J2704

== ENCOUNTER 2024-06-09 10:49 | Outpatient (CLI) | payer MEDICAID, SELFPAY ==
--- OUTSIDE RECORDS SUMMARY | 2024-06-09 10:50 | XMS_ITS | Clinical Summary ---
Author Organization [facility] [place] [address] Care Team Providers Care Cell Tower Climber Name Role Phone Unavailable Primary Care Provider Unavailabl e Social History Tobacco Use Types Packs/Day Years Used Date Smoking Tobacco: Never Assessed Sex and Gender Information Value Date Recorded Sex Assigned at Not on file Gender Identity Not on file Sexual Orientation Not on file Plan of Treatment Health Maintenance Due Date Last Done Comments CT Colonography 1972 Colonoscopy 1972 Colorectal Cancer Screening 1972 FIT DNA 1972 FIT 1972 Sigmoidoscopy (10 year) with FIT yearly 1972 Sigmoidoscopy 1972 HIV screen 01/29/1990 Hepatitis C Screening 01/29/1990 Lipid Screening 01/29/1990 Hepatitis B vaccine (0-59 yrs) (1) 01/29/1991 Tdap adult 01/29/1991 Tetanus vaccine 01/29/1991 Zoster vaccine (1 of 2) 01/29/2022 Covid-19 Vaccine (1 - 2022-24 season) 2023 Influenza (Flu) vaccine (1 o f 1 - Influenza standard series) 06/26/2024
--- OUTSIDE RECORDS SUMMARY | 2024-06-09 10:50 | XMS_ITS | Encounter Summary ---
Author Organization [facility] [place] [address] Care Team Providers Care Software Engineer Sales Name Role Phone Unavailable Primary Care Provider Unavailabl e Encounter Details Date Type Department Care Team (Late st Contact Info) Description 04/30/2022 Interpretation Only [address] [id number] Torsten De Oliveira MD [address] [place] [address] Social History Tobacco Use Types Packs/Day Years Used Date Smoking Tobacco: Never Assessed Sex and Gender Information Value Date Recorded Sex Assigned at Not on file Gender Identity Not on file Sexual Orientation Not on file documented as of this encounter Plan of Treatment Not on file documented as of this encounter Procedures Procedure Name Priority Date/Time Associated Diagnosis Comments XR CHEST ONE VIEW STAT 04/30/2022 7:5 7 PM EDT documented in this encounter Results * XR Chest One View (04/30/2022 7:57 PM EDT) PT CLASS E RAD ADMITDTTM RAD PT RAD INFO [id number]^F RUCHI^KATHIA AUGUSTIN RAD EXAM DESC XCXR1^XR CHEST 1 VIEW^RIS RAD Anatomical Region Laterality Modality Chest N/A Radiographic Marycruz ging Impressions 04/30/2022 8:17 PM EDT Negative portable chest x-ray. Thank you for letting us participate in the care of this patient. ??If you are a health care provider and have any questions regarding this report, please contact the number below. ??For patients who have questions please contact the health ambulatory care coordinator that requested your imaging first. ? Narrative 04/30/2022 8:17 PM EDT EXAMINATION: XR CHEST 1 VIEW CLINICAL HISTORY: cough TECHNIQUE: Portable chest x-ray COMPARISON: None FINDINGS: No consolidation. No mass. No pleural effusion. No pneumothorax. Cardiac, mediastinal and hilar contours are normal. No displaced rib fracture. Mild degenerative changes at the acromioclavicular joints bilaterally. Procedure Note Gabi Borges MD - 04/30/2022 EXAMINATION: XR CHEST 1 VIEW CLINICAL HISTORY: cough TECHNIQUE: Portable chest x-ray COMPARISON: None FINDINGS: No consolidation. No mass. No pleural effusion. No pneumothorax.Cardiac, mediastinal and hilar contours are normal. No displaced rib fracture.Mild degenerative changes at the acromioclavicular joints bilaterally. IMPRESSION Negative portable chest x-ray. Thank you for letting us participate in the care of this patient. If youare a health care provider and have any questions regarding this report,please contact the number below. For patients who have questions please contactthe health ambulatory care coordinator that requested your imaging first. Torsten De Oliveira MD IMG DX ORDERABL ES documented in this encounter Visit Diagnoses Not on filedocumented in this encounter
--- OUTSIDE RECORDS SUMMARY | 2024-06-09 10:50 | XMS_ITS | Encounter Summary ---
Author Organization [facility] Address [address] [place] [address] Care Team Providers Care Program Coordinator For Residence Life Name Role Phone Unavailable Primary Care Provider Unavailabl e Encounter Details Date Type Department Care Team (Late st Contact Info) Description 09/25/2021 Lab Requisition [facility] Pathology & Laboratory Medicine - [address] [address] Outr Resulting Lab, Provider Social History Tobacco Use Types Packs/Day Years Used Date Smoking Tobacco: Never Assessed Interpersonal Safety Answer Date Record ed Physically Hurt Never 09/18/2020 Verbally Threaten Not on file 09/18/2020 Sex and Gender Information Value Date Recorded Sex Assigned at Not on file Gender Identity Not on file Sexual Orientation Not on file documented as of this encounter Plan of Treatment Not on file documented as of this encounter Procedures Procedure Name Priority Date/Time Associated Diagnosis Comments ZZCOVID-19 TEST [facility] PCR Today 09/24/2021 22:45 EST COVID-19 TESTING Routine 09/24/2021 22:4 5 EST documented in this encounter Results * COVID-19 TEST [facility] PCR (09/24/2021 22:45 EST) Swab 09/24/2021 22:4 5 EST 09/25/2021 17:42 EST Provider Outr Resulting Lab MICROBIOLOGY - GENERAL ORDERABLES [facility] [address] [place] [address] * (ABNORMAL) COVID-19 TESTING (09/24/2021 22:45 EST) COVID-19 rt-PCR Result Positive( AA) Negative 09/26/2021 15:01 EST [facility] Comment: This test has not been FDA cleared or approved. This test has been authorized by FDA under an EUA for use by authorized laboratories. This test has been authorized only for detection of nucleic acid from 2019-nCoV, not for any other viruses or pathogens. This test is only authorized for the duration of the declaration that circumstances exist justifying the authorization of emergency use of in vitro diagnostic tests for detection and/or diagnosis of 2019-nCoV under section 564(b)(1) of Act, 21 U.S.C ?? 360bbb-3(b) (1), unless the authorization is terminated or revoked sooner. This test was developed and its performance characteristics determined by [facility]. It has not been cleared or approved by the US Food and Drug Administration. FDA does not require this test to go through premarket FDA review. This test is used for clinical purposes. It should not be regarded as investigational or for research. This laboratory is certified under the Clinical Laboratory Improvement Amendments (CLIA) as qualified to perform high complexity clinical laboratory testing. This test is based on the [facility] COVID-19 Emergency Use Authorization (EUA) assay, with minor modification as defined by the FDA Performed on the [employer] 7 Flex RT-PCR System. Performing Lab [facility] 09/26/2021 15:01 EST [facility] Swab 09/24/2021 22:4 5 EST 09/25/2021 17:42 EST Provider Outr Resulting Lab MICROBIOLOGY - GENERAL ORDERABLES [facility] [address] [place] [address] documented in this encounter Visit Diagnoses Not on filedocumented in this encounter Additional Health Concerns Infection Onset Date Last Indicated Resolved Time COVID-19 09/24/2021 09/24/2021 10/14/2021 22:1 5 EST documented as of this encounter
--- OUTSIDE RECORDS SUMMARY | 2024-06-09 10:50 | XMS_ITS | Continuity of Care Document ---
Author Organization [facility] Address [facility] [address] [place] [address] Phone [phone]
--- OUTSIDE RECORDS SUMMARY | 2024-06-09 10:50 | XMS_ITS | Encounter Summary ---
Author Organization [facility] Address [address] [place] [address] Care Team Providers Care Biomedical Engineering Internship Name Role Phone Unavailable Primary Care Provider Unavailabl e Encounter Details Date Type Department Care Team (Late st Contact Info) Description 08/11/2020 Lab Requisition [facility] Pathology & Laboratory Medicine - [facility] [address] [place] [address] Outr Resulting Lab, Provider Social History Tobacco [...] Procedure Name Priority Date/Time Associated Diagnosis Comments HEPATITIS C AB W REFLEX TO HCV RNA BY PCR Routine 08/10/2020 11:00 EDT documented in this encounter Results * HEPATITIS C AB W REFLEX TO HCV RNA BY PCR (08/10/2020 11:00 EDT) Hep C Antibody Negative Negative 08/13/2020 12:[address] [facility] Blood VENOUS BLOOD / Unknown 08/10/2020 11:00 EDT 08/12/2020 17:03 EDT Provider Outr Resulting Lab CHEMISTRY & BLOOD GAS ORDERABLES [facility] [address] [place] [address] documented in this encounter Visit Diagnoses Not on filedocumented in this encounter Additional Health Concerns Infection Onset Date Last Indicated Resolved Time COVID-19 09/24/2021 09/24/2021 10/14/2021 22:1 5 EST documented as of this encounter
--- OUTSIDE RECORDS SUMMARY | 2024-06-09 10:50 | XMS_ITS | Referral Summary ---
Author Organization [facility] Address [address] [place] [address] Care Team Providers Care Superintendent Production Name Role Phone Unavailable Primary Care Provider [...] Orientation Not on file Plan of Treatment Not on file Procedures Procedure Name Priority Date/Time Associated Diagnosis Comments HEPATITIS C AB W REFLEX TO HCV RNA BY PCR Routine 08/10/2020 11:00 EDT from Last 3 Months or Most Recently Relevant to Health Maintenance Results * HEPATITIS C AB W REFLEX TO HCV RNA BY PCR (08/10/2020 11:00 EDT) Hep C Antibody Negative Negative 08/13/2020 12:[address] [facility] Blood VENOUS BLOOD / Unknown 08/10/2020 11:00 EDT 08/12/2020 17:03 EDT Provider Outr Resulting Lab CHEMISTRY & BLOOD GAS ORDERABLES [facility] [address] [place] [address] from Last 3 Months or Most Recently Relevant to Health Maintenance
--- OUTSIDE RECORDS SUMMARY | 2024-06-09 10:50 | XMS_ITS | Encounter Summary ---
Author Organization [facility] Address [address] [place] [address] Care Team Providers Care Sampler And Test Preparer Name Role Phone Unavailable Primary Care Provider Unavailabl e Encounter Details Date Type Department Care Team (Late st Contact Info) Description 02/18/2022 Lab Requisition [facility] Pathology & Laboratory Medicine - [facility] [address] [place] [address] Outr Resulting Lab, Provider Social History Tobacco [...] Procedure Name Priority Date/Time Associated Diagnosis Comments OVA/PARASITE EXAM Routine 02/17/2022 19: 40 EDT documented in this encounter Results * OVA/PARASITE EXAM (02/17/2022 19:40 EDT) Parasite No ova and parasites seen. 02/20/2022 10:51 EDT [facility] Parasite Disregard previous report. Specimen incorrectly identified. 02/20/2022 10:51 EDT [facility] Feces SPECIMEN FROM RECTUM / Unknown 02/17/2022 19:40 EDT 02/18/2022 17:02 EDT Narrative [facility] - 02/20/2022 10:51 EDT (If Cryptosporidium, Cyclospora, or Microsporidium are suspected, specific tests must be requested.) Single negative specimen does not rule out the possibility of a parasitic infection. Provider Outr Resulting Lab MICROBIOLOGY - GENERAL ORDERABLES [facility] [address] [place] [address] documented in this encounter Visit Diagnoses Not on filedocumented in this encounter
--- OUTSIDE RECORDS SUMMARY | 2024-06-09 10:50 | XMS_ITS | Clinical Summary ---
Author Organization [facility] Address [address] [place] [address] Care Team Providers Care Ui Developer Designer Name Role Phone Unavailable Primary Care Provider [...] Health Maintenance Due Date Last Done Comments Hepatitis B Vaccine (1 of 3 - 19+ 3-dose series) 01/29 COVID-19 Vaccine (2022- season) 2023 Hepatitis C Screen Completed 08/10/2020 Procedures Procedure Name Priority Date/Time Associated Diagnosis Comments HEPATITIS C AB W REFLEX TO HCV RNA BY PCR Routine 08/10/2020 11:00 EDT from Last 3 Months or Most Recently Relevant to Health Maintenance Results * HEPATITIS C AB W REFLEX TO HCV RNA BY PCR (08/10/2020 11:00 EDT) Hep C Antibody Negative Negative 08/13/2020 12:54 EDT [facility] Blood VENOUS BLOOD / Unknown 08/10/2020 11:00 EDT 08/12/2020 17:03 EDT Provider Outr Resulting Lab CHEMISTRY & BLOOD GAS ORDERABLES [facility] [address] [place] [address] from Last 3 Months or Most Recently Relevant to Health Maintenance
[2024-06-09 10:58] LABS: ALT 29 U/L (16-63); AST 8 U/L (15-37); Albumin 3.7 g/dL (3.4-5.0); Alkaline Phosphatase 96 U/L (46-116); Anion Gap 10.1 mmol/L (3-11); BUN 16 mg/dL (7-18); Bilirubin, Total 0.53 mg/dL (0.2-1.0); CO2 25.9 mmol/L (21.0-32.0); CREATININE 0.8 mg/dL (0.70-1.30); Calcium 8.9 mg/dL (8.5-10.1); Calculated LDL 165 mg/dL (<100); Chloride 103 mmol/L (98-107); Cholesterol 271 mg/dL (<200); Estimated GFR 106.48 (mL/min/1.73m2); Glucose 231 mg/dL (74-106); HDL Cholesterol 47 mg/dL (40-60); Sodium 139 mmol/L (136-145); Total Protein 7.3 g/dL (6.4-8.2); Triglyceride 298 mg/dL (<150)
[2024-06-09 11:01] LABS: Hemoglobin A1C 7.8 % (<5.7)
[2024-06-09 20:48] LABS: COMMENT (LAB VIEW ONLY) 63.26 mg/dL; Microalb ug/mg Crea 31.1 ug/mg Cr
== END 2024-06-09 10:50 | disposition home or self-care (01) ==
LOC: LBO 10:49
PROVIDERS: PCP Physician Assistant; Visit Provider Physician Assistant
DX: E11.9 Type 2 diabetes mellitus without complications (principal)
CPT/HCPCS: 36415; 80053; 80061; 82043; 82570; 83036

== ENCOUNTER 2024-08-07 22:54 | Emergency (ER) | payer MEDICAID, SELFPAY ==
--- NOTE | 2024-08-07 23:19 | ED.GENADUL_ITS ---
Discharge Plan Disposition Patient Disposition: Home Condition: Stable Discharge Details Clinical Impression: Cellulitis Primary Care Provider: Omar Bloom ED Provider: Anup Woodruff Home Meds and New Rx's Prescriptions: New cephalexin 500 mg capsule 500 mg PO TID 5 Days Qty: 15 0RF No Action sildenafil (pulm.hypertension) 20 mg tablet 20 mg PO PRN PRN Rx Instructions: administer doses at least 4-6 hours apart pioglitazone [Actos] 15 mg tablet 15 mg PO DAILY atorvastatin 20 mg tablet 20 mg PO DAILY Ozempic 1 mg/dose (4 mg/3 mL) pen injector 1 mg subcut QWEEK Jardiance 25 mg Tablet 25 mg PO DAILY glipizide 5 mg Tablet 5 mg PO BID Discharge Instructions Instructions: Cellulitis (Skin Infection), Adult ED Additional Instructions: Please keep wound clean and dry. Please take antibiotics as prescribed. Return to the emergency department for any worsening symptoms. HPI General Date/Time Provider Initiated Documentation: 08/07/24 22:59 . HPI Narrative: 54-year-old male history of diabetes presents with several days of painful swelling to left ring finger, believes he may have scraped it while at work, redness swelling and discomfort, family member tried to abril it at home within the last couple days only blood came out. No fevers chills nausea vomiting or other systemic signs of illness. Related Data Home Medications ?Medication ?Instructions ?Recorded ?Confirmed empagliflozin 25 mg tablet 25 mg PO DAILY 03/25/21 03/18/24 (Jardiance) glipizide 5 mg tablet 5 mg PO BID 03/25/21 03/18/24 atorvastatin 20 mg tablet 20 mg PO DAILY 05/14/23 03/18/24 pioglitazone 15 mg tablet (Actos) 15 mg PO DAILY 05/14/23 03/18/24 semaglutide 1 mg/dose (4 mg/3 mL) 1 mg subcut QWEEK 03/14/24 03/18/24 subcutaneous pen injector (Ozempic) sildenafil (pulm.hypertension) 20 20 mg PO PRN PRN 03/18/24 mg tablet cephalexin 500 mg capsule 500 mg PO TID 5 days #15 caps 08/07/24 Previous Rx's ?Medication ?Instructions ?Recorded cephalexin 500 mg capsule 500 mg PO TID 5 days #15 caps 10/13/24 Allergies Allergy/AdvReac Type Severity Reaction Status Date / Time No Known Allergies Allergy Unverified 08/05/23 13:38 General DANNY: 3 Exam Narrative Exam Narrative: Left hand: 1 cm slightly raised area of induration and erythema to dorsal aspect of left fourth finger, overlying soft tissue of middle phalange, no joint involvement, full flexion and extension intact, good capillary refill sensation intact median radial and ulnar nerve sensory distribution, radial pulse intact no lymphangitic streaking no fluctuance no purulence no crepitus Alert interactive no acute distress Speaking full sentences no respiratory distress No external signs of trauma Medical Decision Making 54-year-old male presents with several days of localized area of induration and erythema overlying soft tissue of middle phalange fourth digit of left hand, nonfluctuant nonpurulent, neurovascular exam of limb intact, history of physical consistent with localized cellulitis versus abrasion no evidence of foreign b eileen no evidence of fluctuance to suggest abscess no lymphangitic streaking no systemic signs of illness although patient is mildly tachycardic consider related to discomfort. Patient normotensive. No other symptomatology at this time. Will treat empirically with Keflex. Home care instructions and return precautions given. Quality:SDOH Health Related Social Needs: No Data to Display PFSH All Active Problems (Updated 08/07/24 @ 23:23 by Anup Woodruff MD) Cellulitis (Acute) Encounter for screening colonoscopy (Acute) Discharge planning issues (Acute) Bilateral pulmonary embolism (Acute) Left leg DVT (Acute) Concussion (Acute) Suspected 2019-nCoV infection (Acute) Dehydration (Acute) Medical History (Updated 08/07/24 @ 23:23 by Anup Woodruff MD) Hyperlipidemia Type II diabetes mellitus Sleep apnea Dyslipidemia Erectile dysfunction Diabetic neuropathy Mood disorder Pulmonary emboli Fatigue Bipolar disorder Non-insulin dependent diabetes mellitus COVID-19 Surgical History (Updated 03/30/24 @ 15:37 by Shannan Olsen) History of colonoscopy (~03/2024) Family History Mother Stroke Father Heart disease Diabetes Hypertension Social History Smoking/Tobacco Use Status: Never Smoking risk assessment performed?: Yes Alcohol Intake: current Alcohol Intake frequency: a few times a week Alcohol type: beer and hard liquor Drug use: Rarely Substance use type: marijuana Details: Months Do you feel safe at home: Yes Do you feel safe in your relationship?: Yes
[2024-08-07 23:20] VITALS: BP 154/94; PULSE 102; RESP 20; TEMP 36.3; O2SAT 98
[2024-08-07 23:22] VITALS: BP 154/94; PULSE 102; RESP 20; TEMP 36.3; O2SAT 98
[2024-08-07] MEDS: Cephalexin 500 MG CAP PO (23:37)
== END 2024-08-07 23:37 | disposition home or self-care (01) ==
PROVIDERS: Emergency Provider Emergency Medicine; PCP Physician Assistant
DX: L03.012 Cellulitis of left finger (principal)
CPT/HCPCS: 99283

== ENCOUNTER 2025-05-29 15:43 | Outpatient (REF) | payer MEDICAID, SELFPAY ==
[2025-05-29 16:27] LABS: Hemoglobin A1C 10.7 % (<5.7)
[2025-05-29 16:52] LABS: ALT 35 U/L (16-63); AST 15 U/L (15-37); Albumin 4.1 g/dL (3.4-5.0); Alkaline Phosphatase 128 U/L (46-116); Anion Gap 8.2 mmol/L (3-11); BUN 14 mg/dL (7-18); Bilirubin, Total 0.7 mg/dL (0.2-1.0); CO2 27.8 mmol/L (21.0-32.0); Calcium 9.1 mg/dL (8.5-10.1); Calculated LDL 103 mg/dL (<100); Chloride 101 mmol/L (98-107); Cholesterol 186 mg/dL (<200); Estimated GFR 102.12 (mL/min/1.73m2); Glucose 300 mg/dL (74-106); HDL Cholesterol 63 mg/dL (>or=40); Potassium 4.5 mmol/L (3.5-5.1); Sodium 137 mmol/L (136-145); Total Protein 7.3 g/dL (6.4-8.2); Triglyceride 102 mg/dL (<150)
== END 2025-05-29 15:44 | disposition home or self-care (01) ==
LOC: NCHCN 15:43
PROVIDERS: PCP Physician Assistant; Visit Provider Physician Assistant
DX: E11.69 Type 2 diabetes mellitus with other specified complication (principal)
CPT/HCPCS: 80053; 80061; 83036